=== PATIENT | female | born 1960 | race Caucasian/White ===

== ENCOUNTER 2018-10-21 17:46 | Emergency (ER) | payer OTHER, SELFPAY ==
[2018-10-21 18:48] LABS: Absolute Monocytes 0.4 K/uL (0.1-1.3); Absolute Neutrophil 3.5 K/uL (1.8-8.0); Basophils % 0.7 % (0-1.3); Eosinophils % 3.9 % (0-4.4); Hematocrit 40.9 % (36.0-45.0); Lymphocytes % 32.1 % (15.3-44.8); MPV 8.6 fL (7.6-11.3); Monocytes % 6.2 % (3.3-12.3)
[2018-10-21 19:02] LABS: Protime INR 0.89
[2018-10-21 19:19] LABS: ALT/SGPT 14 U/L (12-78); AST/SGOT 17 U/L (15-37); Albumin 3.6 g/dL (3.4-5.0); Alkaline Phosphatase 102 U/L (45-117); BUN Blood Urea Nitrogen 9 mg/dL (7-18); Bicarbonate 26 mmol/L (21-32); Bilirubin Direct < 0.1 mg/dL (0-0.2); Bilirubin Total 0.3 mg/dL (0.2-1.0); Glucose Level 93 mg/dL (74-106); Magnesium 1.9 mg/dL (1.8-2.4); NT PRO-BNP 39 pg/mL (<125); Potassium 3.5 mmol/L (3.5-5.1); Protein, Total 7.2 g/dL (6.4-8.2); Sodium Level 142 mmol/L (136-145); Troponin (Emerg Dept Use Only) < 0.02 ng/mL (0.0-0.045)
--- NOTE | 2018-10-21 19:26 | RAD REPORT ---
EXAM DESCRIPTION: Olivia Single View10/21/2018 7:07 pm CLINICAL HISTORY: Chest pain COMPARISON: 2008 FINDINGS: The lungs appear clear of acute infiltrate. The heart is normal size IMPRESSION: No acute abnormalities displayed
--- NOTE | 2018-10-21 19:36 | ER ---
Nurse's Notes [facility] Name: Leonela Stinson Age: 58 yrs Sex: Female : 1960 Arrival Date: 10/21/2018 Time: 17:53 Bed 25 Private MD: Diagnosis: Chest pain, unspecified Presentation: 10/21 17:53 Presenting complaint: EMS states: PATIENT COMPLAINED OF CHEST PAIN THAT RADIATES TO HER rv BACK. SHE TOOK TWO DOSES OF NITRO WHICH DID NOT GIVE RELIEF. NO SOB. Transition of care: patient was not received from another setting of care. Onset of symptoms was October 21, 2018 at 17:30. Risk Assessment: Do you want to hurt yourself or someone else? Patient reports no desire to harm self or others. Initial Sepsis Screen: Does the patient meet any 2 criteria? No. Patient's initial sepsis screen is negative. Does the patient have a suspected source of infection? No. Patient's initial sepsis screen is negative. Care prior to arrival: None. 17:53 Method Of Arrival: EMS: [facility] rv 17:53 Acuity: EMMY 3 rv Triage Assessment: 18:00 General: Appears in no apparent distress. comfortable, Behavior is calm, cooperative. rv Pain: Denies pain. EENT: No deficits noted. Neuro: Level of Consciousness is awake, alert, obeys commands, Oriented to person, place, time, situation. Cardiovascular: Capillary refill < 3 seconds. Respiratory: Airway is patent. GI: Abdomen is round. : No signs and/or symptoms were reported regarding the genitourinary system. Derm: Skin is intact. Musculoskeletal: No signs and/or symptoms reported regarding the musculoskeletal system. Historical: - Allergies: 17:59 No Known Allergies; rv - Home Meds: 17:59 Metoprolol Tartrate Oral [Active]; aspirin 81 mg Oral TbEC 1 tab once daily [Active]; rv Nexium Oral [Active]; Famotidine Oral [Active]; Clonazepam Oral [Active]; clopidogrel 75 mg oral tab 1 tab once daily [Active]; - PMHx: 17:59 Hypertension; rv - PSHx: 17:59 Hysterectomy; rv - Immunization history:: Adult Immunizations up to date. - Social history:: Smoking status: Patient uses tobacco products, smokes one-half pack cigarettes per day. - Ebola Screening: : Patient negative for fever greater than or equal to 101.5 degrees Fahrenheit, and additional compatible Ebola Virus Disease symptoms Patient denies exposure to infectious person Patient denies travel to an Ebola-affected area in the 21 days before illness onset. Screenin:02 Abuse screen: Denies threats or abuse. Denies injuries from another. Nutritional rv screening: No deficits noted. Tuberculosis screening: No symptoms or risk factors identified. Fall Risk None identified. Assessment: 18:03 Reassessment: (TRIAGE NOTES). rv Vital Signs: 18:01 BP 103 / 71 RA; Pulse 76; Resp 18 S; Temp 97.9(O); Pulse Ox 97% on R/A; Weight 86.18 rv kg; Height 5 ft. 3 in. (160.02 cm); Pain 0/10; 19:53 BP 116 / 73 RA; Pulse 68; Resp 16 S; Pulse Ox 100% on R/A; rv 18:01 Body Mass Index 33.66 (86.18 kg, 160.02 cm) rv ED Course: 17:53 Patient arrived in ED. rv 17:55 Triage completed. rv 18:03 Arm band placed on right wrist. EKG completed in triage. Results shown to MD. rv 18:03 Patient has correct armband on for positive identification. Bed in low position. Call rv light in reach. Side rails up X 1. Adult w/ patient. environmental monitoring specialist on. Pulse ox on. NIBP on. 18:03 Missed attempt(s): 22 gauge in left wrist. rv 18:15 Reilly Weston PA is PHCP. jr8 18:15 Chris Robertson MD is Attending Physician. jr8 19:08 XRAY Chest (1 view) In Process Unspecified. EDMS 19:35 Jimbo Nj MD is Referral Physician. jr8 19:53 No provider procedures requiring assistance completed. IV discontinued, bleeding rv controlled, No redness/swelling at site. Pressure dressing applied. Administered Medications: No medications were administered Outcome: 19:36 Discharge ordered by . jr8 19:54 Discharged to home ambulatory. rv 19:54 Condition: good 19:54 Discharge instructions given to patient, Instructed on discharge instructions, follow up and referral plans. medication usage, Demonstrated understanding of instructions, follow-up care, medications, Prescriptions given X 1. 19:54 Patient left the ED. rv Signatures: Dispatcher [employer] EDMS Reilly Weston PA PA jr8 Matt Oseguera, RN RN rv
--- NOTE | 2018-10-21 19:37 | EDPHYS ---
Physician Documentation [facility] Name: Leonela Stinson Age: 58 yrs Sex: Female : 1960 Arrival Date: 10/21/2018 Time: 17:53 Bed 25 Private MD: ED Physician Chris Robertson HPI: 10/21 19:00 This 58 yrs old Female presents to ER via EMS with complaints of chest pain. jr8 19:00 The patient or guardian reports chest pain that is located primarily in the substernal jr8 area. Onset: acutely, today. The pain radiates to back. Associated signs and symptoms: The patient has no apparent associated signs or symptoms. The chest pain is described as crushing. Duration: The patient or guardian reports a single episode, that is now resolved. Modifying factors: The symptoms are alleviated by nothing. Severity of pain: At its worst the pain was moderate. The patient has not experienced similar symptoms in the past. The patient has not recently seen a physician. Patient stated that she was at laundry mat when she had a hunger pain in stomach. Shortly after had intense substernal chest pain that went to back. Took two nitroglycerin without relief. Daughter had brought her a glass of water. After sipping that pain immediately stopped. Patient currently without any pain. Feels back to baseline . Historical: - Allergies: 17:59 No Known Allergies; rv - Home Meds: 17:59 Metoprolol Tartrate Oral [Active]; aspirin 81 mg Oral TbEC 1 tab once daily [Active]; rv Nexium Oral [Active]; Famotidine Oral [Active]; Clonazepam Oral [Active]; clopidogrel 75 mg oral tab 1 tab once daily [Active]; - PMHx: 17:59 Hypertension; rv - PSHx: 17:59 Hysterectomy; rv - Immunization history:: Adult Immunizations up to date. - Social history:: Smoking status: Patient uses tobacco products, smokes one-half pack cigarettes per day. - Ebola Screening: : Patient negative for fever greater than or equal to 101.5 degrees Fahrenheit, and additional compatible Ebola Virus Disease symptoms Patient denies exposure to infectious person Patient denies travel to an Ebola-affected area in the 21 days before illness onset. ROS: 19:00 Eyes: Negative for injury, pain, redness, and discharge, ENT: Negative for injury, jr8 pain, and discharge, Neck: Negative for injury, pain, and swelling, Respiratory: Negative for shortness of breath, cough, wheezing, and pleuritic chest pain, Abdomen/GI: Negative for abdominal pain, nausea, vomiting, diarrhea, and constipation, Back: Negative for injury and pain, MS/Extremity: Negative for injury and deformity, Skin: Negative for injury, rash, and discoloration, Neuro: Negative for headache, weakness, numbness, tingling, and seizure. 19:00 Cardiovascular: Positive for chest pain, Negative for edema, orthopnea, palpitations, paroxysmal nocturnal dyspnea. Exam: 19:00 Eyes: Pupils equal round and reactive to light, extra-ocular motions intact. Lids and jr8 lashes normal. Conjunctiva and sclera are non-icteric and not injected. Cornea within normal limits. Periorbital areas with no swelling, redness, or edema. ENT: Nares patent. No nasal discharge, no septal abnormalities noted. Tympanic membranes are normal and external auditory canals are clear. Oropharynx with no redness, swelling, or masses, exudates, or evidence of obstruction, uvula midline. Mucous membranes moist. Neck: Trachea midline, no thyromegaly or masses palpated, and no cervical lymphadenopathy. Supple, full range of motion without nuchal rigidity, or vertebral point tenderness. No Meningismus. Chest/axilla: Normal chest wall appearance and motion. Nontender with no deformity. No lesions are appreciated. Cardiovascular: Regular rate and rhythm with a normal S1 and S2. No gallops, murmurs, or rubs. Normal PMI, no JVD. No pulse deficits. Respiratory: Lungs have equal breath sounds bilaterally, clear to auscultation and percussion. No rales, rhonchi or wheezes noted. No increased work of breathing, no retractions or nasal flaring. Abdomen/GI: Soft, non-tender, with normal bowel sounds. No distension or tympany. No guarding or rebound. No evidence of tenderness throughout. Back: No spinal tenderness. No costovertebral tenderness. Full range of motion. Skin: Warm, dry with normal turgor. Normal color with no rashes, no lesions, and no evidence of cellulitis. MS/ Extremity: Pulses equal, no cyanosis. Neurovascular intact. Full, normal range of motion. Neuro: Awake and alert, GCS 15, oriented to person, place, time, and situation. Cranial nerves II-XII grossly intact. Motor strength 5/5 in all extremities. Sensory grossly intact. Cerebellar exam normal. Normal gait. Vital Signs: 18:01 BP 103 / 71 RA; Pulse 76; Resp 18 S; Temp 97.9(O); Pulse Ox 97% on R/A; Weight 86.18 rv kg; Height 5 ft. 3 in. (160.02 cm); Pain 0/10; 19:53 BP 116 / 73 RA; Pulse 68; Resp 16 S; Pulse Ox 100% on R/A; rv 18:01 Body Mass Index 33.66 (86.18 kg, 160.02 cm) rv MDM: 18:15 Patient medically screened. jr8 19:34 Differential diagnosis: abnormal EKG, acute myocardial infarction, acute pericarditis, jr8 anxiety, chest wall pain, cholecystitis, Cholelithiasis costochondritis, esophagitis, gastritis, gastroesophageal reflux disease (GERD), pancreatitis, peptic ulcer disease, pneumonia, pneumothorax, pulmonary embolus, stable angina, thoracic aortic disection, unstable angina. The patient was not given aspirin in the Emergency Department. Patient reports taking aspirin within the past 24 hours. Data reviewed: vital signs, nurses notes, lab test result(s), EKG, radiologic studies, plain films. ED course: Patient was telling me that she has been having worsening of her gastritis and indigestion even with being on pepcid and nexium. Discussed with her that this could be the problem today. Advised f/u with both waste disposal plant operator and apparel cutter soon. Patient did not want to wait for second troponin to be done. Knows to come back if worse. Will switch PPI's . 10/21 18:16 Order name: Basic Metabolic Panel; Complete Time: 19:25 [facility] 10/21 18:16 Order name: CBC with Diff; Complete Time: 19:04 [facility] 10/21 18:16 Order name: LFT's; Complete Time: 19:25 [facility] 10/21 18:16 Order name: Magnesium; Complete Time: 19:25 [facility] 10/21 18:16 Order name: NT PRO-BNP; Complete Time: 19:25 [facility] 10/21 18:16 Order name: PT-INR; Complete Time: 19:06 10/21 18:16 Order name: Troponin (emerg Dept Use Only); Complete Time: 19:25 8 10/21 18:16 Order name: XRAY Chest (1 view); Complete Time: 19:27 10/21 18:16 Order name: EKG; Complete Time: 18:17 8 10/21 18:16 Order name: Cardiac monitoring; Complete Time: 18:17 8 10/21 18:16 Order name: EKG - Nurse/Tech; Complete Time: 18:17 10/21 18:16 Order name: IV Saline Lock; Complete Time: 18:17 8 10/21 18:16 Order name: Labs collected and sent; Complete Time: 18:17 8 10/21 19:21 Order name: Urine Dipstick--Ancillary (enter results) ms 10/21 18:16 Order name: O2 Per Protocol; Complete Time: 18:17 8 10/21 18:16 Order name: O2 Sat Monitoring; Complete Time: 18:17 Administered Medications: No medications were administered Disposition: 10/21/18 19:36 Discharged to Home. Impression: Chest pain, unspecified. - Condition is Stable. - Discharge Instructions: Nonspecific Chest Pain, Gastroesophageal Reflux Disease, Adult, Chest Pain Observation. - Prescriptions for Dexilant 30 mg Oral capsule,biphase delayed releas - take 2 capsule by ORAL route once daily swallowing whole. Do not crush, chew and/or divide.; 60 capsule. - Medication Reconciliation Form, Thank You Letter, Antibiotic Education, Prescription Opioid Use form. - Follow up: Jimbo Nj MD; When: 2 - 3 days; Reason: Recheck today's complaints, Continuance of care, Re-evaluation by your physician. - Problem is new. - Symptoms have improved. - Notes: Stop pepcid and Nexium Addendum: 10/25/2018 21:55 Co-signature as Attending Physician, Chris Robertson MD. g s Signatures: Dispatcher [employer] EDMS Reilly Weston PA PA jr8 Chris Robertson MD MD gs Vicente, Ronaldo, RN RN rv Corrections: (The following items were deleted from the chart) 10/21 19:02 19:00 Eyes: Pupils equal round and reactive to light, extra-ocular motions intact. Lids jr8 and lashes normal. Conjunctiva and sclera are non-icteric and not injected. Cornea within normal limits. Periorbital areas with no swelling, redness, or edema. ENT: Nares patent. No nasal discharge, no septal abnormalities noted. Tympanic membranes are normal and external auditory canals are clear. Oropharynx with no redness, swelling, or masses, exudates, or evidence of obstruction, uvula midline. Mucous membranes moist. Neck: Trachea midline, no thyromegaly or masses palpated, and no cervical lymphadenopathy. Supple, full range of motion without nuchal rigidity, or vertebral point tenderness. No Meningismus. Cardiovascular: Regular rate and rhythm with a normal S1 and S2. No gallops, murmurs, or rubs. Normal PMI, no JVD. No pulse deficits. Respiratory: Lungs have equal breath sounds bilaterally, clear to auscultation and percussion. No rales, rhonchi or wheezes noted. No increased work of breathing, no retractions or nasal flaring. Abdomen/GI: Soft, non-tender, with normal bowel sounds. No distension or tympany. No guarding or rebound. No evidence of tenderness throughout. Back: No spinal tenderness. No costovertebral tenderness. Full range of motion. Skin: Warm, dry with normal turgor. Normal color with no rashes, no lesions, and no evidence of cellulitis. MS/ Extremity: Pulses equal, no cyanosis. Neurovascular intact. Full, normal range of motion. Neuro: Awake and alert, GCS 15, oriented to person, place, time, and situation. Cranial nerves II-XII grossly intact. Motor strength 5/5 in all extremities. Sensory grossly intact. Cerebellar exam normal. Normal gait. jr8 19:54 19:36 10/21/2018 19:36 Discharged to Home. Impression: Chest pain, unspecified. rv Condition is Stable. Forms are Medication Reconciliation Form, Thank You Letter, Antibiotic Education, Prescription Opioid Use. Follow up: Jimbo Nj; When: 2 - 3 days; Reason: Recheck today's complaints, Continuance of care, Re-evaluation by your physician. Problem is new. Symptoms have improved. jr8
[2018-10-21 20:48] LABS: Urine Blood TRACE (NEG); Urine Glucose NEGATIVE (NEG); Urine Protein 1+ (NEG); Urine Specific Gravity 1.015 (1.005-1.030); Urine pH 6.5 (5.0-7.0)
--- NOTE | 2018-10-22 09:41 | EKG ---
Test Date: 2018-10-21 Test Time: 17:57:47 Conventional Underwriter: PAPAT MEASUREMENT RESULTS: Intervals: Rate: 70 [place]: 154 QRSD: 90 QT: 432 QTc: 466 [place]: P: 46 [place]: 154 QRS: 52 T: 71 INTERPRETIVE STATEMENTS: Normal sinus rhythm Normal ECG Compared to ECG 01/17/2009 08:26:06 No significant changes Electronically Signed On 10-22-18 09:40:07 CDT by Slava Melgar
== END 2018-10-21 19:54 | disposition home or self-care (01) ==
LOC: ER 17:46
DX: R07.9 Chest pain, unspecified (principal); I10 Essential (primary) hypertension; F17.210 Nicotine dependence, cigarettes, uncomplicated; Z79.82 Long term (current) use of aspirin
CPT/HCPCS: 36415; 71045; 80048; 80076; 81003; 83735; 83880; 84484; 85025; 85610; 93005; 99284

== ENCOUNTER 2019-12-28 23:56 | Emergency (ER) | payer SELFPAY ==
--- OUTSIDE RECORDS SUMMARY | 2019-12-28 23:58 | XMS REPORT ---
:1960 Author Organization [facility] t Address [address] [place] [address] Care Team Providers Name Role Phone Darien BURGOS Attending Clinician Problems This patient has no known problems. Allergies, Adverse Reactions, Alerts This patient has no known allergies or adverse reactions. Medications This patient has no known medications. Procedures This patient has no known procedures. Encounters Start End Encounter Admission Attending Care Care Encounter Source Date/Time Date/Time Type Type Clinicians Facility Department ID 2019-10-31 2019-10-31 [facility] RAHUL Ledezma [id number] 09:01:49 09:21:49 ne Visit Jimbo [place] [id number] [place] [id number] [place] [id number] nal 059 Building Results This patient has no known results.
--- OUTSIDE RECORDS SUMMARY | 2019-12-28 23:59 | XMS REPORT | Summary of Care ---
:1960 Author Organization [facility] Address [address] [place] [id number] Care Team Providers Name Role Phone Pcp, Does Not Have A Primary Care Provider Reason for Referral (Routine) Status Reason Specialty Diagnoses / Referred By Referred To Procedures Contact Contact New Request Cardiology Diagnoses Chest pain, unspecified type Jimbo Ledezma MD Procedures DOBUTAMINE STRESS ECHO Preferred Location: [address] [place] [address] Reason for Visit Reason Comments Chest Pain Encounter Details Date Type Department Care Team Description 10/31/2019 Telemedicine Visit [facility] Jimbo Ledezma MD Chest pain, unspecified type (Primary Dx ); Cardiology- [address] [place] [address] Coronary a rtery disease involving picayune coronary artery of picayune heart with angina pectoris; [facility] Essential hypertension; [address] [place] [address] [address] Dyslipidemia; [address], [address] [place], [place] Obesity (BMI 30-39.9) [place] [address] [phone] Allergies Active Allergy Reactions Severity Noted Date Comments Lisinopril Cough 11/30/2017 documented as of this encounter (statuses as of 10/31/2019) Medications Medication Sig Dispensed Refills Start Date End Date Status aspirin 81 mg Take 1 Tab by 30 Tab 5 09/26/2015 A ctive chewable tablet mouth daily. atorvastatin 40 mg Take 1 tablet 90 tablet 3 09/16/2017 Active tablet by mouth daily. famotidine 20 mg Take 1 tablet 180 tablet 3 09/16/2017 Active tablet by mouth 2 (two) times daily. metoprolol tartrate Take 1 tablet 180 tablet 3 09/16/2017 Active 50 mg tablet by mouth 2 (two) times daily. nitroglycerin 0.4 Place 1 1 Bottle 3 09/16/2017 A ctive mg sublingual tablet under tablet the tongue every 5 (five) minutes as needed for Chest pain. losartan 100 mg Take 1 tablet 30 tablet 2 11/30/2017 Active tablet by mouth daily. clopidogrel 75 mg Take 1 tablet 90 tablet 3 09/16/2017 020 Discontinued tablet by mouth daily. documented as of this encounter (statuses as of 10/31/2019) Active Problems Problem Noted Date Dyslipidemia 03/13/2017 Coronary artery disease involving picayune coronary rosio ry of picayune heart 03/13/2017 with angina pectoris Obesity (BMI 30-39.9) 03/12/2017 NSTEMI (non-ST elevated myocardial infarction) 016 Family history of ischemic heart disease 09/23/2015 HTN (hypertension) 09/23/2015 Chest pain 09/22/2015 documented as of this encounter (statuses as of 10/31/2019) Social History Tobacco Use Types Packs/Day Years Used Date Current Every Day Smoker Smokeless Tobacco: Never Used Comments: slowly stopping over time Alcohol Use Drinks/Week oz/Week Comments No Sex Assigned at Date Recorded Not on file Job Start Date Occupation Industry Not on file Not on file Not on file Travel History Travel Start Travel End No recent travel history available. documented as of this encounter Last Filed Vital Signs Not on filedocumented in this encounter Progress Notes Jimbo Ledezma MD - 10/31/2019 2:20 PM CDT CARDIOLOGY CLINIC NOTE 10/31/2019 Reason for Referral/Presenting Complaint: CAD s/p PCI, HTN, chest pain PCP: PATIENT DOES NOT HAVE A PCP History of Present Illness: Leonela Stinson is a 59 years old female with history of smoking, HTN, HLD, and CAD NSTEMI s/p LAD/D/LCxPCI with CHERRIE in 09/2015. She was seen in [facility] in 09/2015 for NSTEMI. She was transferred to [facility] where she underwent PCI with CHERRIE to LAD/D/LCx with good results. LVEDP was 28 mmHg. "Recently her BP has been elevated and she can feel it--facial fullness. She has had 2 episodes of throat tightness similar to previous angina." Today her main concern is chest pain--chronic, it have been going on even right after PCI. It is around left breast, sometimes right breast, almost daily, dull ache, lasting hours, however she can mow the yard without chest pain. Still smoking. Off plavix due to cost. Now on amlodipine. Past Medical History: Past Medical History: Diagnosis Date CAD (coronary artery disease) 09/2015 NSTEMI HLD (hyperlipidemia) HTN (hypertension) Current Medications: Current Outpatient Medications Medication Sig Dispense Refill losartan 100 mg tablet Take 1 tablet by mouth daily. 30 tablet 2 atorvastatin 40 mg tablet Take 1 tablet by mouth daily. 90 tablet 3 famotidine 20 mg tablet Take 1 tablet by mouth 2 (two) times daily. 180 tablet 3 metoprolol tartrate 50 mg tablet Take 1 tablet by mouth 2 (two) times daily. 180 tablet 3 nitroglycerin 0.[address] 1 tablet under the tongue every 5 (five) minutes as needed for Chest pain. 1 Bottle 3 aspirin 81 mg chewable tablet Take 1 Tab by mouth daily. 30 Tab 5 No current facility-administered medications for this visit. Allergies: Allergies Allergen Reactions Lisinopril Cough Social History: Social History Socioeconomic History Marital status: Spouse name: Not on file Number of children: Not on file Years of education: Not on file Highest education level: Not on file Occupational History Not on file Social Needs Financial resource strain: Not on file Food insecurity: Worry: Not on file Inability: Not on file Transportation needs: Medical: Not on file Non-medical: Not on file Tobacco Use Smoking status: Current Every Day Smoker Smokeless tobacco: Never Used Tobacco comment: slowly stopping over time Substance and Sexual Activity Alcohol use: No Drug use: No Sexual activity: Not on file Lifestyle Physical activity: Days per week: Not on file Minutes per session: Not on file Stress: Not on file Relationships Social connections: Talks on phone: Not on file Gets together: Not on file Attends anglican service: Not on file Active member of club or organization: Not on file Attends meetings of clubs or organizations: Not on file Relationship status: Not on file Intimate partner violence: Fear of current or ex partner: Not on file Emotionally abused: Not on file Physically abused: Not on file Forced sexual activity: Not on file Other Topics Concern Not on file Social History Narrative Not on file Family History Family History Problem Relation Age of Onset Coronary Heart Disease Father 50 CABG 2010 Coronary Heart Disease Mother 50 PCI Coronary Heart Disease Brother 40 PCI Coronary Heart Disease Brother 40 CABG 3[address] Coronary Heart Disease Brother 40 CABG 4[address] Review of Systems: (-)=Negative,(+)=Positive General: (-) fever, (-) chills, (-) weight change, (-) dizziness, (+) fatigue Skin: (-) rash HEENT: (-) headache, (-) change in vision Neck: (-) difficulty swallowing Heme: negative Resp: (-) cough, (-) dyspnea on exertion Cardio: (+) chest pain, (-) palpitations, (-) syncope GI: (-) vomiting, (-) diarrhea : negative Endo: (-) diabetes, (-) thyroid disease Neuro: (-) numbness, (-) tingling, (+) weakness Back: (-) pain MAYNOR: (-) muscle pain, (-) claudication Psych: (-) anxiety, (-) depression Physical Examination: Constitutional: Alert and in no distress Respiratory: Breathing comfortably Neurology: Answers questions appropriately Labs: CBC BMP PT/INR WBC (10*3/L) Date Value 12/05/2017 6.99 NA (mmol/L) Date Value 12/05/2017 140 No results found for: PT PLT (10*3/L) Date Value 12/05/2017 221 K (mmol/L) Date Value 12/05/2017 3.5 INR (no units) Date Value 12/04/2017 0.9 HGB (g/dL) Date Value 12/05/2017 12.2 BUN (mg/dL) Date Value 12/05/2017 14 HCT (%) Date Value 12/05/2017 36.1 CREATININE (mg/dL) Date Value 12/05/2017 0.70 LIPID PROFILE GLUCOSE (mg/dL) Date Value 12/05/2017 105 CHOL (mg/dL) Date Value 09/23/2015 250 (H) TSH LDL CHOL (mg/dL) Date Value 09/23/2015 150 (H) TSH (mIU/L) Date Value 03/12/2017 0.57 CARDIAC ENZYMES HDL (mg/dL) Date Value 09/23/2015 51 (L) CK (U/L) Date Value 03/12/2017 60 TRIG (mg/dL) Date Value 09/23/2015 244 (H) LFTs CK-MB (ng/mL) Date Value 03/12/2017 0.79 AST(SGOT) (U/L) Date Value 12/04/2017 26 TROPONIN I (ng/mL) Date Value 12/05/2017 0.002 ALT(SGPT) (U/L) Date Value 12/04/2017 30 No results found for: BNP EKG: Normal sinus rhythm. Non-specific ST changes. 12/08/2015: NSR, normal EKG. Echocardiogram: 09/2015 Normal LVEF with normal wall motion. Cardiac Cath: 09/2015 LAD/D/LCx disease treated with PCI CHERRIE. LVEDP 28 mmHg. Assessment/Plan: ICD-10-CM ICD-9-CM 1. Chest pain, unspecified type R07.9 786.50 2. Coronary artery disease involving picayune coronary artery of picayune heart with angina pectoris I25.119 414.01 413.9 3. Essential hypertension I10 401.9 4. Dyslipidemia E78.5 272.4 5. Obesity (BMI 30-39.9) E66.9 278.00 Chest pain--non anginal chest pain, different from previous angina. She is very concerned and wants to have ischemia evaluation. Discussed treadmill stress test vs DSE. She prefers DSE. HTN--Her BP seems controlled. Continue losartan/amlodipine/metoprolol. CAD--On ASA/lipitor/metoprolol. Off plavix due to cost. HLD--on lipitor. Patient was counseled for lifestyle modifications including: diet, exercise, weight loss and smokingcessation. RTC 12 months or earlier if needed Telehealth service ? Verbal consent obtained from patient Leonela Stinson for telehealth sevice provided ? My location: [facility] cardiology clinic ? Patient location: Home ? Format: Communication with patient was conducted via Telephone due to patient unable to obtain video call option ? A total of 25 minutes spent on the telephone with the patient Jimbo Ledezma MD, FACC, ANGELAE [employer], Division of Cardiology [facility] documented in this encounter Plan of Treatment Health Maintenance Due Date Last Done Comments HEPATITIS C (HCV) SCREEN 1960 DTaP,Tdap,and Td Vaccines (1 - 1973 Tdap) PAP SMEAR 1983 Breast Cancer Screening 2002 (MAMMOGRAM) COLONOSCOPY 2012 Zoster Recombinant Vaccine 2012 (SHINGRIX) (1 of 2) LUNG CANCER SCREEN: Recommended 2017 for age 55-80 with 30 + pack year history INFLUENZA VACCINE (#1) 2019 PNEUMOCOCCAL 0-64 YEARS COMBINED Aged Out No longer eligible based on SERIES patient's age to complete this topic documented as of this encounter Implants Implanted Type Area Forms Designer Device Identifier Shelf Exp iration Model / Serial Date / Lot Stent STENT Heart documented as of this encounter Results Not on filedocumented in this encounter Visit Diagnoses Diagnosis Chest pain, unspecified type - Primary Coronary artery disease involving picayune coronary artery of picayune heart with angina pectoris Essential hypertension Unspecified essential hypertension Dyslipidemia Other and unspecified hyperlipidemia Obesity (BMI 30-39.9) Obesity, unspecified documented in this encounter
[2019-12-29 00:47] LABS: Absolute Lymphocytes (CBC) 3.1 K/uL (0.7-4.9); Basophils % 1.3 % (0-1.3); Hematocrit 44.2 % (36.0-45.0); Lymphocytes % 40.7 % (15.3-44.8); RBC Red Blood Cell Count 4.78 M/uL (3.86-4.86)
[2019-12-29] MEDS ORDERED: ONDANSETRON 4 MG/2 ML VIAL ONE (00:48)
[2019-12-29] MEDS ORDERED: MORPHINE 4 MG/ML SYR ONE (00:48)
[2019-12-29] MEDS ORDERED: NA CHLORIDE 0.9% 1,000 ML ONE (00:48)
[2019-12-29 01:02] LABS: ALT/SGPT 15 U/L (12-78); AST/SGOT 16 U/L (15-37); Albumin 3.6 g/dL (3.4-5.0); Alkaline Phosphatase 109 U/L (45-117); BUN Blood Urea Nitrogen 10 mg/dL (7-18); Bicarbonate 27 mmol/L (21-32); Bilirubin Direct < 0.1 mg/dL (0-0.2); Bilirubin Total 0.2 mg/dL (0.2-1.0); Glucose Level 102 mg/dL (74-106); Lipase 147 U/L (73-393); Potassium 3.7 mmol/L (3.5-5.1); Protein, Total 7.8 g/dL (6.4-8.2); Sodium Level 139 mmol/L (136-145)
[2019-12-29 02:00] LABS: Urine Blood TRACE (NEG); Urine Glucose NEGATIVE (NEG); Urine Protein NEGATIVE (NEG); Urine pH 7.5 (5.0-7.0)
[2019-12-29 02:37] VITALS: TEMP 97.8
[2019-12-29 02:39] VITALS: BP 116/79; O2SAT 96
--- NOTE | 2019-12-29 15:50 | RAD REPORT ---
EXAM DESCRIPTION: CT ABDOMEN AND PELVIS WITH CONTRAST CLINICAL HISTORY: ABD PAIN COMPARISON: None Available. TECHNIQUE: CT of the abdomen and pelvis performed following IV administration of iodinated contrast. FINDINGS: Lung Bases: The visualized lung bases are clear. Bones: Degenerative facet arthropathy of the lumbar spine. Mild endplate spondylosis. Abdomen: Liver: The liver has normal size and density. No intrahepatic biliary dilatation. Gallbladder: No calcified gallstones. Spleen, Pancreas, and Adrenal Glands: The spleen, pancreas, and adrenal glands are unremarkable. Kidneys: No hydronephrosis or obstructing calculus. Vasculature: Aortoiliac atherosclerosis. IVC is unremarkable. The portal vein is patent. The proxim al visceral and renal arteries are patent. Stomach: Small hiatal hernia. Other: No free intraperitoneal air. Tiny fat-containing umbilical hernia. No free fluid or lymphade nopathy. Pelvis: Bladder: Urinary bladder is unremarkable. Bowel: No dilated loops of large or small bowel. Scattered diverticula of the colon. Appendix: Normal appendix. Pelvis: Prior hysterectomy. IMPRESSION: 1. No acute inflammatory or obstructive process identified. 2. Diverticulosis without evidence of acute diverticulitis. This exam was performed according to our departmental dose-optimization program, which includes autom ated exposure control, adjustment of the mA and/or kV according to patient size and/or use of iterati ve reconstruction technique. Electronically signed by: Robel Yang 12/29/2019 1:32 AM CDT Due to temporary technical issues with the PACS/Fluency reporting system, reports are being signed by the in house radiologist without review asa courtesy to ensure prompt reporting. The interpreting ra diologist is fully responsible for the content of the report.
--- NOTE | 2019-12-31 17:33 | EDPHYS ---
Physician Documentation [facility] Name: Leonela Stinson Age: 59 yrs Sex: Female : 1960 Arrival Date: 12/28/2019 Time: 23:58 Bed 15 Private MD: ED Physician Jon Calzada HPI: 12/28 00:57 This 59 yrs old Female presents to ER via Ambulatory with complaints of mh7 Abdominal pain. 00:58 The patient presents with abdominal pain in the left upper quadrant, in the left lower mh7 quadrant. Onset: The symptoms/episode began/occurred 3 day(s) ago. The symptoms radiate to the left flank. Associated signs and symptoms: Pertinent positives: nausea, Pertinent negatives: anorexia, blood in stools, chest pain, constipation, diarrhea, dysuria, fever, headache, hematuria, palpitations, shortness of breath, vaginal discharge, vomiting, vomiting blood. The symptoms are described as intermittent, sharp, waxing/waning. Modifying factors: The symptoms are alleviated by nothing, the symptoms are aggravated by movement. Severity of pain: At its worst the pain was moderate today, in the emergency department the pain is unchanged. Historical: - Allergies: 00:08 No Known Allergies; sg - PMHx: 00:08 Hypertension; sg - PSHx: 00:08 Hysterectomy; Bladder suspension; Cardiac Stent x4; sg - Immunization history:: Adult Immunizations up to date. - Social history:: Smoking status: Patient denies any tobacco usage or history of. ROS: 00:58 Constitutional: Negative for fever, chills, and weight loss, Eyes: Negative for injury, mh7 pain, redness, and discharge, ENT: Negative for injury, pain, and discharge, Neck: Negative for injury, pain, and swelling, Cardiovascular: Negative for chest pain, palpitations, and edema, Respiratory: Negative for shortness of breath, cough, wheezing, and pleuritic chest pain, : Negative for injury, bleeding, discharge, and swelling, MS/Extremity: Negative for injury and deformity, Skin: Negative for injury, rash, and discoloration, Neuro: Negative for headache, weakness, numbness, tingling, and seizure, Psych: Negative for depression, anxiety, suicide ideation, homicidal ideation, and hallucinations, Allergy/Immunology: Negative for hives, rash, and allergies, Endocrine: Negative for neck swelling, polydipsia, polyuria, polyphagia, and marked weight changes, Hematologic/Lymphatic: Negative for swollen nodes, abnormal bleeding, and unusual bruising. Exam: 00:58 Constitutional: This is a well developed, well nourished patient who is awake, alert, mh7 and in no acute distress. Head/Face: Normocephalic, atraumatic. Neck: Trachea midline, no thyromegaly or masses palpated, and no cervical lymphadenopathy. Supple, full range of motion without nuchal rigidity, or vertebral point tenderness. No Meningismus. Chest/axilla: Normal chest wall appearance and motion. Nontender with no deformity. No lesions are appreciated. Cardiovascular: Regular rate and rhythm with a normal S1 and S2. No gallops, murmurs, or rubs. Normal PMI, no JVD. No pulse deficits. Respiratory: Lungs have equal breath sounds bilaterally, clear to auscultation and percussion. No rales, rhonchi or wheezes noted. No increased work of breathing, no retractions or nasal flaring. 00:58 Skin: Warm, dry with normal turgor. Normal color with no rashes, no lesions, and no evidence of cellulitis. MS/ Extremity: Pulses equal, no cyanosis. Neurovascular intact. Full, normal range of motion. Neuro: Awake and alert, GCS 15, oriented to person, place, time, and situation. Cranial nerves II-XII grossly intact. Motor strength 5/5 in all extremities. Sensory grossly intact. Cerebellar exam normal. Normal gait. Psych: Awake, alert, with orientation to person, place and time. Behavior, mood, and affect are within normal limits. 00:58 Abdomen/GI: Inspection: abdomen appears normal, Bowel sounds: normal, in all quadrants, Palpation: moderate abdominal tenderness, in the left upper quadrant and left lower quadrant, Rectal exam: the exam is deferred, because of patient request, Indicators: McBurney's point is not tender, Clayton's sign is negative, Rovsing's sign is negative, Obturator sign is negative, Psoas sign is negative, Liver: no appreciated palpable abnormalities, Hernia: not appreciated. 00:58 Back: pain, is absent, ROM is normal, normal spinal alignment noted, CVA tenderness, that is mild, is noted on the left, vertebral tenderness, is not appreciated, muscle spasm, is not present. 01:54 ECG was reviewed by the Attending Physician. [facility] Vital Signs: 00:05 Weight 70.31 kg; Height 5 ft. 8 in. (172.72 cm); Pain 10/10; sg 00:06 BP 161 / 108; Pulse 105; Resp 19 S; Temp 97.8(TE); Pulse Ox 100% on R/A; jd3 01:41 BP 116 / 79; Pulse 73; Resp 17 S; Pulse Ox 96% on R/A; jd3 00:05 Body Mass Index 23.57 (70.31 kg, 172.72 cm) sg MDM: 00:23 Patient medically screened. [facility] 02:12 Differential diagnosis: AAA, bowel obstruction, Cholelithiasis, diverticulitis, [facility] gastritis, non-specific abd pain, pancreatitis, Peptic Ulcer Disease, Pyelonephritis, Ureterolithiasis, urinary tract infection. Data reviewed: vital signs, nurses notes, lab test result(s), CBC, electrolytes, urinalysis, EKG, radiologic studies, CT scan. Data interpreted: Pulse oximetry: on room air is 96 %. Interpretation: normal. Counseling: I had a detailed discussion with the patient and/or guardian regarding: the historical points, exam findings, and any diagnostic results supporting the discharge/admit diagnosis, lab results, radiology results, the need for outpatient follow up, to return to the emergency department if symptoms worsen or persist or if there are any questions or concerns that arise at home. 12/28 00:25 Order name: Basic Metabolic Panel [facility] 12/28 00:25 Order name: CBC with Diff [facility] 12/28 00:25 Order name: Hepatic Function; Complete Time: 01:10 [facility] 12/28 00:26 Order name: Basic Metabolic Panel; Complete Time: 01:10 [facility] 12/28 00:26 Order name: CBC with Automated Diff; Complete Time: 01:10 [facility] 12/28 00:25 Order name: CT Abd/Pelvis - IV Contrast Only [facility] 12/28 00:57 Order name: Lipase; Complete Time: 01:10 [facility] 12/28 01:03 Order name: CREATININE WHOLE BLOOD; Complete Time: 01:10 [facility] 12/28 01:04 Order name: CREATININE WHOLE BLOOD [facility] 12/28 01:57 Order name: Urine Dipstick--Ancillary (enter results); Complete Time: 02:07 12/28 00:25 Order name: IV Saline Lock; Complete Time: 00:42 mh7 12/28 00:25 Order name: Labs collected and sent; Complete Time: 00:42 mh7 12/28 00:25 Order name: EKG - Nurse/Tech; Complete Time: 00:49 mh7 12/28 01:26 Order name: Urine Dipstick-Ancillary (obtain specimen); Complete Time: 01:28 mh7 EC:54 Rate is 71 beats/min. Rhythm is regular. QRS Dewey is Normal. AR interval is normal. QRS mh7 interval is normal. QT interval is normal. Q waves are Present in lead I. T waves are Normal. No ST changes noted. Clinical impression: NSR w/ Non-specific ST/T Changes. Administered Medications: 00:47 Drug: morphine 4 mg Route: IVP; Site: right antecubital; jd3 02:27 Follow up: Response: No adverse reaction; RASS: Alert and Calm (0) jd3 00:47 Drug: Zofran (Ondansetron) 4 mg Route: IVP; Site: right antecubital; jd3 02:28 Follow up: Response: No adverse reaction jd3 00:49 Drug: NS 0.9% 1000 ml Route: IV; Rate: 1000 ml; Site: right antecubital; jd3 01:45 Follow up: Response: No adverse reaction; IV Status: Completed infusion; IV Intake: jd3 1000ml Disposition: 12/29/19 02:14 Discharged to Home. Impression: Unspecified abdominal pain. - Condition is Stable. - Discharge Instructions: Abdominal Pain, Adult. - Prescriptions for Zofran ODT 4 mg Oral tablet,disintegrating - place 1 tablet by TRANSLINGUAL route every 8 hours As needed; 10 tablet. Bentyl 20 mg Oral Tablet - take 1 tablet by ORAL route every 6 hours As needed; 20 tablet. Pepcid 20 mg Oral Tablet - take 1 tablet by ORAL route once daily for 10 days; 10 tablet. - Medication Reconciliation Form, Thank You Letter, Antibiotic Education, Prescription Opioid Use form. - Follow up: Private Physician; When: 1 - 2 days; Reason: Worsening of condition, Re-evaluation by your physician. - Problem is new. - Symptoms have improved. Signatures: [facility] Randy Galvez, RN RN sg Vidal Starr RN RN jJon Matthew MD MD mh7 Corrections: (The following items were deleted from the chart) 00:58 00:27 LIPASE+C.LAB.BRZ ordered. [facility] 02:29 02:14 12/29/2019 02:14 Discharged to Home. Impression: Unspecified abdominal pain. jd3 Condition is Stable. Forms are Medication Reconciliation Form, Thank You Letter, Antibiotic Education, Prescription Opioid Use. Follow up: Private Physician; When: 1 - 2 days; Reason: Worsening of condition, Re-evaluation by your physician. Problem is new. Symptoms have improved. mh7
--- NOTE | 2019-12-31 17:33 | ER ---
Nurse's Notes [facility] Name: Leonela Stinson Age: 59 yrs Sex: Female : 1960 Arrival Date: 12/28/2019 Time: 23:58 Bed 15 Private MD: Diagnosis: Unspecified abdominal pain Presentation: 12/28 00:05 Chief complaint: Patient states: Left Sided flank pain that radiates to the left side sg of abdomen, pt complaining of nausea, denies urinary symptoms at this time, reports having a hx of bladder sling that was not successful and frequent UTI but this feels much different than those times in the past. Coronavirus screen: Proceed with normal triage. Ebola Screen: Patient negative for fever greater than or equal to 101.5 degrees Fahrenheit, and additional compatible Ebola Virus Disease symptoms Patient denies exposure to infectious person. Patient denies travel to an Ebola-affected area in the 21 days before illness onset. No symptoms or risks identified at this time. Initial Sepsis Screen: Does the patient meet any 2 criteria? HR > 90 bpm. Does the patient have a suspected source of infection? Yes: Dysuria/Frequency/Urgency/UTI. Risk Assessment: Do you want to hurt yourself or someone else? Patient reports no desire to harm self or others. Onset of symptoms was December 29, 2019. Care prior to arrival: None. Transition of care: patient was not received from another setting of care. 00:05 Method Of Arrival: Ambulatory sg 00:05 Acuity: EMMY 3 sg Historical: - Allergies: 00:08 No Known Allergies; sg - PMHx: 00:08 Hypertension; sg - PSHx: 00:08 Hysterectomy; Bladder suspension; Cardiac Stent x4; sg - Immunization history:: Adult Immunizations up to date. - Social history:: Smoking status: Patient denies any tobacco usage or history of. Screenin:09 Abuse screen: Denies threats or abuse. Nutritional screening: No deficits noted. jd3 Tuberculosis screening: No symptoms or risk factors identified. Fall Risk Ambulatory Aid- None/Bed Rest/Nurse Assist (0 pts). Gait- Normal/Bed Rest/Wheelchair (0 pts) Mental Status- Oriented to own ability (0 pts). Total Chen Fall Scale indicates No Risk (0-24 pts). Assessment: 00:07 General: Appears in no apparent distress. uncomfortable, Behavior is calm, cooperative, jd3 appropriate for age. Pain: Complains of pain in left flank Pain radiates to anterior aspect of left lateral abdomen and left lower quadrant Quality of pain is described as sharp, shooting. Neuro: Level of Consciousness is awake, alert, obeys commands, Oriented to person, place, time, situation. Cardiovascular: Denies chest pain, Capillary refill < 3 seconds Patient's skin is warm and dry. Respiratory: Airway is patent Respiratory effort is even, unlabored, Respiratory pattern is regular, symmetrical, Denies cough, shortness of breath. GI: Abdomen is round non-distended, Bowel sounds present X 4 quads. Abd is soft X 4 quads Abdomen is tender to palpation in left upper quadrant and left lower quadrant Reports lower abdominal pain, nausea. : Reports pain in left flank(s). EENT: No signs and/or symptoms were reported regarding the EENT system. Derm: Skin is intact, Skin is dry, Skin is normal, Skin temperature is warm. Musculoskeletal: Circulation, motion, and sensation intact. Range of motion: intact in all extremities. 01:41 Reassessment: Patient and/or family updated on plan of care and expected duration. Pain jd3 level reassessed. Patient is alert, oriented x 3, equal unlabored respirations, skin warm/dry/pink. Patient states feeling better. 02:29 Reassessment: Patient appears in no apparent distress at this time. Patient and/or jd3 family updated on plan of care and expected duration. Pain level reassessed. Patient is alert, oriented x 3, equal unlabored respirations, skin warm/dry/pink. Patient states feeling better. Vital Signs: 00:05 Weight 70.31 kg; Height 5 ft. 8 in. (172.72 cm); Pain 10/10; sg 00:06 BP 161 / 108; Pulse 105; Resp 19 S; Temp 97.8(TE); Pulse Ox 100% on R/A; jd3 01:41 BP 116 / 79; Pulse 73; Resp 17 S; Pulse Ox 96% on R/A; jd3 00:05 Body Mass Index 23.57 (70.31 kg, 172.72 cm) ED Course: 12/27 23:58 Patient arrived in ED. bp1 12/28 00:05 Vidal Starr, RN is Primary Nurse. jd3 00:07 Triage completed. sg 00:08 Arm band placed on. sg 00:09 Patient has correct armband on for positive identification. Bed in low position. Call jd3 light in reach. Side rails up X 1. Pulse ox on. NIBP on. 00:10 Jon Calzada MD is Attending Physician. 7 00:35 Inserted saline lock: 20 gauge in right antecubital area, using aseptic technique. jd3 Blood collected. 01:24 CT Abd/Pelvis - IV Contrast Only In Process Unspecified. EDMS 02:28 No provider procedures requiring assistance completed. IV discontinued, intact, jd3 bleeding controlled, No redness/swelling at site. Pressure dressing applied. Administered Medications: 00:47 Drug: morphine 4 mg Route: IVP; Site: right antecubital; jd3 02:27 Follow up: Response: No adverse reaction; RASS: Alert and Calm (0) jd3 00:47 Drug: Zofran (Ondansetron) 4 mg Route: IVP; Site: right antecubital; jd3 02:28 Follow up: Response: No adverse reaction jd3 00:49 Drug: NS 0.9% 1000 ml Route: IV; Rate: 1000 ml; Site: right antecubital; jd3 01:45 Follow up: Response: No adverse reaction; IV Status: Completed infusion; IV Intake: jd3 1000ml Intake: 01:45 IV: 1000ml; Total: 1000ml. jd3 Outcome: 02:14 Discharge ordered by . 7 02:28 Discharged to home ambulatory, with family. jd3 02:28 Condition: stable 02:28 Discharge instructions given to patient, Instructed on discharge instructions, follow up and referral plans. medication usage, Demonstrated understanding of instructions, follow-up care, medications, Prescriptions given X 3. 02:29 Patient left the ED. jd3 Signatures: Dispatcher [employer] EDMS Randy Galvez RN RN sg Davies, Jonathon, RN RN jMaria Luisa Dangelo Maurice, MD MD [facility]
== END 2019-12-29 02:29 | disposition home or self-care (01) ==
LOC: ER 23:56
DX: R10.9 Unspecified abdominal pain (principal); I10 Essential (primary) hypertension; Z95.818 Presence of other cardiac implants and grafts
CPT/HCPCS: 36415; 74177; 80048; 80076; 81003; 82565; 83690; 85025; 93005; 96361; 96374; 96375; 99284; J2405; J7030; Q9967

== ENCOUNTER 2020-01-01 13:32 | Emergency (ER) | payer SELFPAY ==
--- OUTSIDE RECORDS SUMMARY | 2020-01-01 14:09 | XMS REPORT | Continuity of Care Document ---
:1960 Author Organization [facility] t Address [address] [place] [address] Care Team Providers Name Role Phone Darien [...] 2019-10-31 2019-10-31 Telemed[facility] RAHUL Ledezma [phone] 09:01:49 09:21:49 ne Visit Jimbo Medellin [id number] [place] [id number] Nayely [phone] nal 059 Building Results This patient has no known results.
[2020-01-01] MEDS ORDERED: LIDOCAINE VISCOUS 2% SOLN 15 ML UDC ONE (14:59)
[2020-01-01] MEDS ORDERED: MAGNE/ALUM HYDROXD 30 ML UCUP ONE (14:59)
[2020-01-01 16:21] LABS: Absolute Lymphocytes (CBC) 2.1 K/uL (0.7-4.9); Basophils % 0.7 % (0-1.3); Hematocrit 48.5 % (36.0-45.0); Lymphocytes % 28.5 % (15.3-44.8); MPV 9.1 fL (7.6-11.3); RBC Red Blood Cell Count 5.21 M/uL (3.86-4.86)
[2020-01-01 16:32] LABS: ALT/SGPT 20 U/L (12-78); AST/SGOT 25 U/L (15-37); Albumin 3.9 g/dL (3.4-5.0); Alkaline Phosphatase 113 U/L (45-117); BUN Blood Urea Nitrogen 9 mg/dL (7-18); Bicarbonate 28 mmol/L (21-32); Bilirubin Direct < 0.1 mg/dL (0-0.2); Bilirubin Total 0.5 mg/dL (0.2-1.0); Glucose Level 107 mg/dL (74-106); Lipase 70 U/L (73-393); Potassium 3.8 mmol/L (3.5-5.1); Protein, Total 8.3 g/dL (6.4-8.2); Sodium Level 138 mmol/L (136-145)
[2020-01-01] MEDS ORDERED: NA CHLORIDE 0.9% 1,000 ML ONE (18:35)
[2020-01-01] MEDS ORDERED: dexAMETHasone 10 MG/ML VIAL ONE (18:35)
--- NOTE | 2020-01-01 19:03 | ER ---
Nurse's Notes [facility] Name: Leonela Stinson Age: 59 yrs Sex: Female : 1960 Arrival Date: 01/01/2020 Time: 13:35 Bed 8 Private MD: Diagnosis: Gastro-esophageal reflux disease Presentation: 12/31 13:50 Chief complaint: Patient states: Seen in ED on Tuesday and dx w/ diverticulosis, ss prescribed Bentyl and Zofran but not feeling any better, c/o pain in entire abdomen that radiates to back, also c/o nausea and lack of appetite, denies V/D or fever. Coronavirus screen: Patient denies a cough. Patient denies shortness of breath or difficulty breathing. Patient denies measured and/or subjective temperature greater than 100.4F prior to today's visit. Patient denies travel on a cruise ship or to a country the [facility] currently lists as an affected area. Patient denies contact with known and/or suspected case of COVID-19. Ebola Screen: No symptoms or risks identified at this time. Initial Sepsis Screen: Does the patient meet any 2 criteria? No. Patient's initial sepsis screen is negative. Does the patient have a suspected source of infection? No. Patient's initial sepsis screen is negative. Risk Assessment: Do you want to hurt yourself or someone else? Patient reports no desire to harm self or others. Onset of symptoms was January 01, 2020. 13:50 Method Of Arrival: Ambulatory ss 13:50 Acuity: EMMY 3 ss Historical: - Allergies: 14:58 No Known Allergies; tw2 - Home Meds: 13:54 Metoprolol Tartrate Oral [Active]; Famotidine Oral [Active]; aspirin 81 mg Oral TbEC 1 ss tab once daily [Active]; amlodipine oral [Active]; Clonazepam Oral [Active]; Nexium Oral [Active]; 14:37 clopidogrel 75 mg Oral tab 1 tab once daily [Active]; tw2 - PMHx: 13:54 Hypertension; ss - PSHx: 13:54 Hysterectomy; Bladder suspension; Cardiac Stent x4; ss - Immunization history:: Adult Immunizations unknown. - Social history:: Smoking status: Patient reports the use of cigarette tobacco products, smokes one-half pack cigarettes per day. Screenin:36 Abuse screen: Denies threats or abuse. Nutritional screening: No deficits noted. tw2 Tuberculosis screening: No symptoms or risk factors identified. Fall Risk None identified. Assessment: 14:30 General: Appears in no apparent distress. uncomfortable, well groomed, Behavior is tw2 calm, cooperative, appropriate for age. Pain: Complains of pain in abdomen. Neuro: Level of Consciousness is awake, alert, obeys commands, Oriented to person, place, time, situation. Cardiovascular: Capillary refill < 3 seconds Patient's skin is warm and dry. Respiratory: Airway is patent Respiratory effort is even, unlabored, Respiratory pattern is regular, symmetrical, Breath sounds are clear bilaterally. GI: Abdomen is round non-distended, Bowel sounds present X 4 quads. Abd is soft X 4 quads Reports lower abdominal pain, upper abdominal pain, "i just have this burning on the inside and its all over, i drove myself but the medicine isnt helping and i just need to know if there is something else we can try because my doctor cant get me in for another week", provider notified and medicated as ordered. : No signs and/or symptoms were reported regarding the genitourinary system. EENT: No signs and/or symptoms were reported regarding the EENT system. Derm: No signs and/or symptoms reported regarding the dermatologic system. Musculoskeletal: Range of motion: intact in all extremities. 15:30 Reassessment: Patient appears in no apparent distress at this time. No changes from tw2 previously documented assessment. Patient and/or family updated on plan of care and expected duration. Pain level reassessed. Patient is alert, oriented x 3, equal unlabored respirations, skin warm/dry/pink. Patient states symptoms have improved. 16:46 Reassessment: Patient appears in no apparent distress at this time. No changes from tw2 previously documented assessment. Patient and/or family updated on plan of care and expected duration. Pain level reassessed. Patient is alert, oriented x 3, equal unlabored respirations, skin warm/dry/pink. 17:36 Reassessment: Patient appears in no apparent distress at this time. No changes from tw2 previously documented assessment. Patient and/or family updated on plan of care and expected duration. Pain level reassessed. Patient is alert, oriented x 3, equal unlabored respirations, skin warm/dry/pink. 18:43 Reassessment: Patient appears in no apparent distress at this time. No changes from tw2 previously documented assessment. Patient and/or family updated on plan of care and expected duration. Pain level reassessed. Patient is alert, oriented x 3, equal unlabored respirations, skin warm/dry/pink. Vital Signs: 13:50 BP 137 / 83; Pulse 71; Resp 17; Temp 98.8; Pulse Ox 97% on R/A; Weight 89.36 kg; Height ss 5 ft. 2 in. (157.48 cm); Pain 7/10; 14:54 BP 125 / 85; Pulse 75; Resp 16; Pulse Ox 96% on R/A; tw2 15:50 BP 129 / 73; Pulse 72; Resp 17; Pulse Ox 96% on R/A; tw2 16:45 BP 128 / 74; Pulse 60; Resp 17; Pulse Ox 98% on R/A; tw2 17:38 BP 138 / 73; Pulse 65; Resp 17; Pulse Ox 97% on R/A; tw2 18:42 BP 116 / 66; Pulse 71; Resp 17; Pulse Ox 96% on R/A; tw2 13:50 Body Mass Index 36.03 (89.36 kg, 157.48 cm) ED Course: 13:35 Patient arrived in ED. ag5 13:53 Triage completed. ss 13:54 Arm band placed on Patient placed in waiting room, Patient notified of wait time. ss 14:15 Bed in low position. Call light in reach. Pulse ox on. NIBP on. tw2 14:36 Oralia Travis RN is Primary Nurse. tw2 14:45 Jon Calzada MD is Attending Physician. 7 16:05 Inserted saline lock: 20 gauge in right antecubital area, using aseptic technique. tw2 Blood collected. 19:02 Jorge Camacho MD is Referral Physician. [facility] 19:12 No provider procedures requiring assistance completed. IV discontinued, intact, tw2 bleeding controlled, No redness/swelling at site. Pressure dressing applied. Administered Medications: 14:54 Drug: GI Cocktail without - (Maalox Suspension 30 ml, Lidocaine Liquid 2 % 15 tw2 ml) Route: PO; 15:54 Follow up: Response: No adverse reaction; Pain is decreased tw2 18:35 Drug: Decadron - Dexamethasone 10 mg Route: IVP; Site: right antecubital; tw2 19:12 Follow up: Response: No adverse reaction tw2 18:35 Drug: NS 0.9% 1000 ml Route: IV; Rate: 1 bolus; Site: right antecubital; tw2 19:12 Follow up: Response: No adverse reaction; IV Status: Completed infusion; Order to tw2 discontinue infusion; IV Intake: 800ml Intake: 19:12 IV: 800ml; Total: 800ml. tw2 Outcome: 19:03 Discharge ordered by MD. bruce 19:12 Discharged to home ambulatory. tw2 19:12 Condition: stable 19:12 Discharge instructions given to patient, Instructed on discharge instructions, follow up and referral plans. Demonstrated understanding of instructions, follow-up care. 19:36 Patient left the ED. mertd3 Signatures: Hiral Webster RN RN ss Oralia Travis RN RN tw2 Vidal Strar RN RN jd3 Benedict Stubbs [facility] Jon Calzada MD MD 7
--- NOTE | 2020-01-01 19:03 | EDPHYS ---
Physician Documentation [facility] Name: Leonela Stinson Age: 59 yrs Sex: Female : 1960 Arrival Date: 01/01/2020 Time: 13:35 Bed 8 Private MD: ED Physician Jon Calzada HPI: 12/31 16:22 This 59 yrs old Female presents to ER via Ambulatory with complaints of mh7 Abdominal Pain, Back Pain, . 16:23 The patient presents with abdominal pain in the upper abdomen. Onset: The mh7 symptoms/episode began/occurred 1 week(s) ago. The symptoms radiate to back. Associated signs and symptoms: Pertinent positives: nausea, Pertinent negatives: anorexia, blood in stools, chest pain, constipation, fever, headache, hematuria, palpitations, shortness of breath, vaginal discharge, vomiting, vomiting blood. The symptoms are described as burning, intermittent, waxing/waning. Modifying factors: The symptoms are alleviated by nothing, the symptoms are aggravated by food. Severity of pain: At its worst the pain was moderate yesterday, in the emergency department the pain has improved moderately. The patient has been recently seen at the [facility] Emergency Department, this week. Historical: - Allergies: 14:58 No Known Allergies; tw2 - Home Meds: 13:54 Metoprolol Tartrate Oral [Active]; Famotidine Oral [Active]; aspirin 81 mg Oral TbEC 1 ss tab once daily [Active]; amlodipine oral [Active]; Clonazepam Oral [Active]; Nexium Oral [Active]; 14:37 clopidogrel 75 mg Oral tab 1 tab once daily [Active]; tw2 - PMHx: 13:54 Hypertension; ss - PSHx: 13:54 Hysterectomy; Bladder suspension; Cardiac Stent x4; ss - Immunization history:: Adult Immunizations unknown. - Social history:: Smoking status: Patient reports the use of cigarette tobacco products, smokes one-half pack cigarettes per day. ROS: 16:23 Constitutional: Negative for fever, chills, and weight loss, Eyes: Negative for injury, mh7 pain, redness, and discharge, ENT: Negative for injury, pain, and discharge, Neck: Negative for injury, pain, and swelling, Cardiovascular: Negative for chest pain, palpitations, and edema, Respiratory: Negative for shortness of breath, cough, wheezing, and pleuritic chest pain, : Negative for injury, bleeding, discharge, and swelling, MS/Extremity: Negative for injury and deformity, Skin: Negative for injury, rash, and discoloration, Neuro: Negative for headache, weakness, numbness, tingling, and seizure, Psych: Negative for depression, anxiety, suicide ideation, homicidal ideation, and hallucinations, Allergy/Immunology: Negative for hives, rash, and allergies, Endocrine: Negative for neck swelling, polydipsia, polyuria, polyphagia, and marked weight changes, Hematologic/Lymphatic: Negative for swollen nodes, abnormal bleeding, and unusual bruising. Exam: 16:23 Constitutional: This is a well developed, well nourished patient who is awake, alert, mh7 and in no acute distress. Head/Face: Normocephalic, atraumatic. Eyes: Pupils equal round and reactive to light, extra-ocular motions intact. Lids and lashes normal. Conjunctiva and sclera are non-icteric and not injected. Cornea within normal limits. Periorbital areas with no swelling, redness, or edema. Neck: Trachea midline, no thyromegaly or masses palpated, and no cervical lymphadenopathy. Supple, full range of motion without nuchal rigidity, or vertebral point tenderness. No Meningismus. Chest/axilla: Normal chest wall appearance and motion. Nontender with no deformity. No lesions are appreciated. Cardiovascular: Regular rate and rhythm with a normal S1 and S2. No gallops, murmurs, or rubs. Normal PMI, no JVD. No pulse deficits. Respiratory: Lungs have equal breath sounds bilaterally, clear to auscultation and percussion. No rales, rhonchi or wheezes noted. No increased work of breathing, no retractions or nasal flaring. 16:23 Back: No spinal tenderness. No costovertebral tenderness. Full range of motion. Skin: Warm, dry with normal turgor. Normal color with no rashes, no lesions, and no evidence of cellulitis. MS/ Extremity: Pulses equal, no cyanosis. Neurovascular intact. Full, normal range of motion. Neuro: Awake and alert, GCS 15, oriented to person, place, time, and situation. Cranial nerves II-XII grossly intact. Motor strength 5/5 in all extremities. Sensory grossly intact. Cerebellar exam normal. Normal gait. Psych: Awake, alert, with orientation to person, place and time. Behavior, mood, and affect are within normal limits. 16:23 Abdomen/GI: Inspection: abdomen appears normal, Bowel sounds: normal, in all quadrants, Palpation: mild abdominal tenderness, in the epigastric area, Rectal exam: the exam is deferred, because of patient request, Indicators: McBurney's point is not tender, Clayton's sign is negative, Rovsing's sign is negative, Obturator sign is negative, Psoas sign is negative, Liver: no appreciated palpable abnormalities, Hernia: not appreciated. Vital Signs: 13:50 BP 137 / 83; Pulse 71; Resp 17; Temp 98.8; Pulse Ox 97% on R/A; Weight 89.36 kg; Height ss 5 ft. 2 in. (157.48 cm); Pain 7/10; 14:54 BP 125 / 85; Pulse 75; Resp 16; Pulse Ox 96% on R/A; tw2 15:50 BP 129 / 73; Pulse 72; Resp 17; Pulse Ox 96% on R/A; tw2 16:45 BP 128 / 74; Pulse 60; Resp 17; Pulse Ox 98% on R/A; tw2 17:38 BP 138 / 73; Pulse 65; Resp 17; Pulse Ox 97% on R/A; tw2 18:42 BP 116 / 66; Pulse 71; Resp 17; Pulse Ox 96% on R/A; tw2 13:50 Body Mass Index 36.03 (89.36 kg, 157.48 cm) MDM: 15:16 Patient medically screened. [facility] 19:01 Differential diagnosis: gastritis, gastroesophageal reflux disease, pancreatitis, 7 Peptic Ulcer Disease. Data reviewed: vital signs, nurses notes, old medical records, lab test result(s), CBC, electrolytes. Data interpreted: glass technician: rate is 71 beats/min, rhythm is normal sinus rhythm, regular, Interpretation: normal rate, normal rhythm, Pulse oximetry: on room air is 96 %. Interpretation: normal. Counseling: I had a detailed discussion with the patient and/or guardian regarding: the historical points, exam findings, and any diagnostic results supporting the discharge/admit diagnosis, lab results, the need for outpatient follow up, to return to the emergency department if symptoms worsen or persist or if there are any questions or concerns that arise at home. Response to treatment: the patient's symptoms have resolved after treatment, the patient's blood pressure is in an acceptable range, mental status has returned to baseline, the patient no longer shows bradycardia, the patient is not short of breath, the patient is not tachycardic, the patient's pain is gone, the patient's temperature has normalized. 12/31 15:50 Order name: Basic Metabolic Panel; Complete Time: 17:11 [facility] 12/31 15:50 Order name: CBC with Diff; Complete Time: 17:11 12/31 15:50 Order name: Hepatic Function; Complete Time: 17:11 [facility] 12/31 15:50 Order name: Lipase; Complete Time: 17:11 [facility] 12/31 15:50 Order name: IV Saline Lock; Complete Time: 16:04 [facility] 12/31 15:50 Order name: Labs collected and sent; Complete Time: 16:05 7 Administered Medications: 14:54 Drug: GI Cocktail without - (Maalox Suspension 30 ml, Lidocaine Liquid 2 % 15 tw2 ml) Route: PO; 15:54 Follow up: Response: No adverse reaction; Pain is decreased tw2 18:35 Drug: Decadron - Dexamethasone 10 mg Route: IVP; Site: right antecubital; tw2 19:12 Follow up: Response: No adverse reaction tw2 18:35 Drug: NS 0.9% 1000 ml Route: IV; Rate: 1 bolus; Site: right antecubital; tw2 19:12 Follow up: Response: No adverse reaction; IV Status: Completed infusion; Order to [facility] discontinue infusion; IV Intake: 800ml Disposition: 01/01/20 19:03 Discharged to Home. Impression: Gastro-esophageal reflux disease. - Condition is Stable. - Discharge Instructions: Gastroesophageal Reflux Disease, Adult, [id number], Food Choices for Gastroesophageal Reflux Disease, Adult, [id number]. - Medication Reconciliation Form, Thank You Letter, Antibiotic Education, Prescription Opioid Use form. - Follow up: Jorge Camacho MD; When: 1 - 2 days; Reason: Worsening of condition, Recheck today's complaints, Re-evaluation by your physician. - Problem is an ongoing problem. - Symptoms have improved. Signatures: Dispatcher [employer] EDOR Philly Colón, VARNISH COOKER-C VARNISH COOKER-Csnw Hiral Webster, RN RN ss Oralia Travis RN RN tw2 Vidal Starr RN RN jd3 Jon Calzada MD MD mh7 Corrections: (The following items were deleted from the chart) 19:36 19:03 01/01/2020 19:03 Discharged to Home. Impression: Gastro-esophageal reflux jd3 disease. Condition is Stable. Forms are Medication Reconciliation Form, Thank You Letter, Antibiotic Education, Prescription Opioid Use. Follow up: Jorge Camacho; When: 1 - 2 days; Reason: Worsening of condition, Recheck today's complaints, Re-evaluation by your physician. Problem is an ongoing problem. Symptoms have improved. mh7
[2020-01-01 19:44] VITALS: TEMP 98.8
[2020-01-01 19:50] VITALS: BP 116/66; O2SAT 96
== END 2020-01-01 19:36 | disposition home or self-care (01) ==
LOC: ER 13:32
DX: K21.9 Gastro-esophageal reflux disease without esophagitis (principal); I10 Essential (primary) hypertension; F17.210 Nicotine dependence, cigarettes, uncomplicated; Z95.5 Presence of coronary angioplasty implant and graft
CPT/HCPCS: 36415; 80048; 80076; 83690; 85025; 96361; 96374; 99284; J1100; J7030

== ENCOUNTER 2020-05-07 19:53 | Inpatient (IN) | payer SELFPAY ==
[2020-05-07 20:33] LABS: Absolute Lymphocytes (CBC) 2.4 K/uL (0.7-4.9); Hematocrit 47.2 % (36.0-45.0); Lymphocytes % 35.3 % (15.3-44.8); MPV 8.8 fL (7.6-11.3); Protime INR 0.97; RBC Red Blood Cell Count 5.07 M/uL (3.86-4.86)
[2020-05-07 20:49] LABS: ALT/SGPT 13 U/L (12-78); AST/SGOT 13 U/L (15-37); Albumin 3.5 g/dL (3.4-5.0); Alkaline Phosphatase 105 U/L (45-117); BUN Blood Urea Nitrogen 8 mg/dL (7-18); Bicarbonate 26 mmol/L (21-32); Bilirubin Direct < 0.1 mg/dL (0-0.2); Bilirubin Total 0.4 mg/dL (0.2-1.0); Glucose Level 112 mg/dL (74-106); NT PRO-BNP 33 pg/mL (<125); Potassium 3.4 mmol/L (3.5-5.1); Protein, Total 7.6 g/dL (6.4-8.2); Sodium Level 140 mmol/L (136-145); Troponin (Emerg Dept Use Only) < 0.02 ng/mL (0.0-0.045)
--- NOTE | 2020-05-07 20:54 | ER ---
Nurse's Notes [facility] Name: Leonela Stinson Age: 59 yrs Sex: Female : 1960 Arrival Date: 05/07/2020 Time: 19:55 Bed 4 Private MD: Diagnosis: Chest pain, unspecified Presentation: 05/07 20:04 Acuity: EMMY 3 sg 20:04 Chief complaint: Patient states: Chest pain that began 3 days ago, reports having sg anxiety and shortness of breath as well as feeling weak all over, states i feel like i could just pass out asleep at any moment, pt states the pain is now radiating into the left arm at this time, causing some discomfort, denies N/V//D/Fever at this time. Coronavirus screen: Client denies travel out of the [place] in the last 14 days. At this time, the client does not indicate any symptoms associated with coronavirus-19. Ebola Screen: Patient negative for fever greater than or equal to 101.5 degrees Fahrenheit, and additional compatible Ebola Virus Disease symptoms Patient denies exposure to infectious person. Patient denies travel to an Ebola-affected area in the 21 days before illness onset. No symptoms or risks identified at this time. Initial Sepsis Screen: Does the patient meet any 2 criteria? No. Patient's initial sepsis screen is negative. Does the patient have a suspected source of infection? No. Patient's initial sepsis screen is negative. Risk Assessment: Do you want to hurt yourself or someone else? Patient reports no desire to harm self or others. Onset of symptoms was May 04, 2020. Care prior to arrival: None. Transition of care: patient was not received from another setting of care. 20:04 Method Of Arrival: Ambulatory sg Historical: - Allergies: 20:04 No Known Allergies; sg - Home Meds: 20:04 amlodipine oral [Active]; aspirin 81 mg Oral TbEC 1 tab once daily [Active]; Clonazepam sg Oral [Active]; clopidogrel 75 mg Oral tab 1 tab once daily [Active]; Famotidine Oral [Active]; Metoprolol Tartrate Oral [Active]; Nexium Oral [Active]; - PMHx: 20:04 Hypertension; sg - PSHx: 20:04 Hysterectomy; Bladder suspension; Cardiac Stent x4; sg - Immunization history:: Adult Immunizations up to date. - Social history:: Smoking status: Patient denies any tobacco usage or history of. Screenin:19 Abuse screen: Denies threats or abuse. Denies injuries from another. Nutritional rr5 screening: No deficits noted. Tuberculosis screening: No symptoms or risk factors identified. Fall Risk IV access (20 points). Total Chen Fall Scale indicates No Risk (0-24 pts). Assessment: 20:40 General: Appears in no apparent distress. comfortable, Behavior is calm, cooperative, rr5 appropriate for age. Pain: Complains of pain in chest Pain currently is 0 out of 10 on a pain scale. Quality of pain is described as aching, Pain began gradually, Is intermittent. Neuro: Level of Consciousness is awake, alert, obeys commands, Oriented to person, place, time, situation. Cardiovascular: Reports chest pain, shortness of breath, Capillary refill < 3 seconds Patient's skin is warm and dry. Respiratory: Reports shortness of breath Airway is patent Respiratory effort is even, unlabored, Respiratory pattern is regular, symmetrical. GI: No signs and/or symptoms were reported involving the gastrointestinal system. : No signs and/or symptoms were reported regarding the genitourinary system. EENT: No signs and/or symptoms were reported regarding the EENT system. Derm: Skin is intact, is healthy with good turgor, Skin temperature is warm. Musculoskeletal: Circulation, motion, and sensation intact. Capillary refill < 3 seconds. 21:15 Reassessment: Patient appears in no apparent distress at this time. Patient is alert, rr5 oriented x 3, equal unlabored respirations, skin warm/dry/pink. hospitalist at bedside. 22:30 Reassessment: Patient appears in no apparent distress at this time. Patient is alert, rr5 oriented x 3, equal unlabored respirations, skin warm/dry/pink. awaiting for room assignment. 23:30 Reassessment: Patient appears in no apparent distress at this time. Patient and/or rr5 family updated on plan of care and expected duration. Pain level reassessed. Patient is alert, oriented x 3, equal unlabored respirations, skin warm/dry/pink. 05/08 01:00 Reassessment: Patient appears in no apparent distress at this time. Patient is alert, rr5 oriented x 3, equal unlabored respirations, skin warm/dry/pink. for transfer to room 407 awake alert no complaints made. Vital Signs: 05/07 20:18 BP 120 / 82; Pulse 86; Resp 16; Temp 98; Pulse Ox 98% ; Weight 74.84 kg; Height 5 ft. 3 rr5 in. (160.02 cm); Pain 0/10; 21:29 BP 127 / 92; Pulse 76; Resp 17; Pulse Ox 99% ; rr5 22:30 BP 126 / 89; Pulse 70; Resp 16; Pulse Ox 99% ; rr5 23:30 BP 119 / 62; Pulse 79; Resp 17; Pulse Ox 98% ; rr5 05/08 00:20 BP 121 / 62; Pulse 73; Resp 17; Pulse Ox 100% ; rr5 01:00 BP 127 / 88; Pulse 77; Resp 16; Pulse Ox 100% on R/A; sg 05/07 20:18 Body Mass Index 29.23 (74.84 kg, 160.02 cm) rr5 ED Course: 05/07 19:55 Patient arrived in ED. mr 19:58 Roderick Hanley MD is Attending Physician. tw4 20:00 Reilly Weston PA is PHCP. jr8 20:04 Triage completed. sg 20:04 Arm band placed on. sg 20:05 Rehan Glynn RN is Primary Nurse. rr5 20:18 EKG done, by ED staff. Inserted saline lock: 20 gauge in right forearm, using aseptic rr5 technique. Blood collected. 20:20 Patient has correct armband on for positive identification. Placed in gown. Bed in low rr5 position. Call light in reach. Side rails up X2. property assessment monitor on. Pulse ox on. NIBP on. 20:49 XRAY Chest (1 view) In Process Unspecified. EDMS 20:53 Chay Hoover MD is Hospitalizing Provider. jr8 21:29 No provider procedures requiring assistance completed. Patient admitted, IV remains in rr5 place. intact, No redness/swelling at site. Patient maintains SpO2 saturation greater than 95% on room air. 21:58 covid. rr5 Administered Medications: 21:04 Drug: Aspirin Chewable Tablet 324 mg Route: PO; rr5 22:00 Follow up: Response: No adverse reaction rr5 Outcome: 20:54 Decision to Hospitalize by Provider. jr8 05/08 01:00 Admitted to Tele accompanied by tech, via stretcher, room 407, with chart, Report sg called to Ivet GODOY Condition: good Instructed on the need for admit, safety practices, Demonstrated understanding of instructions, follow-up care. 01:27 Patient left the ED. rv Signatures: Dispatcher [employer] EDMS Randy Galvez, RN RN sg Deirdre Ramires mr Trista, Reilly, PA PA jr8 Roderick Hanley MD MD tw4 Matt Oseguera RN RN rv Rehan Glynn, RN RN rr5
--- NOTE | 2020-05-07 20:54 | EDPHYS ---
Physician Documentation [facility] Name: Leonela Stinson Age: 59 yrs Sex: Female : 1960 Arrival Date: 05/07/2020 Time: 19:55 Bed 4 Private MD: ED Physician Roderick Hanley HPI: 05/07 20:26 This 59 yrs old Female presents to ER via Ambulatory with complaints of Chest jr8 Pain. 20:26 The patient or guardian reports chest pain that is located primarily in the substernal jr8 area, anterior chest wall, left. Onset: gradually, 3 day(s) ago, and became worse. The pain radiates to the left shoulder. Associated signs and symptoms: Pertinent positives: palpitations, shortness of breath. The chest pain is described as dull, a pressure. Duration: The patient or guardian reports multiple episodes, that wax and wane, the episodes last approximately 1 hour(s). Modifying factors: The symptoms are alleviated by nothing. the symptoms are aggravated by activity. Severity of pain: At its worst the pain was moderate in the emergency department the pain has improved mildly. It is unknown whether or not the patient has had similar symptoms in the past. The patient has not recently seen a physician. Historical: - Allergies: 20:04 No Known Allergies; sg - Home Meds: 20:04 amlodipine oral [Active]; aspirin 81 mg Oral TbEC 1 tab once daily [Active]; Clonazepam sg Oral [Active]; clopidogrel 75 mg Oral tab 1 tab once daily [Active]; Famotidine Oral [Active]; Metoprolol Tartrate Oral [Active]; Nexium Oral [Active]; - PMHx: 20:04 Hypertension; sg - PSHx: 20:04 Hysterectomy; Bladder suspension; Cardiac Stent x4; sg - Immunization history:: Adult Immunizations up to date. - Social history:: Smoking status: Patient denies any tobacco usage or history of. ROS: 20:28 Eyes: Negative for injury, pain, redness, and discharge, ENT: Negative for injury, jr8 pain, and discharge, Neck: Negative for injury, pain, and swelling, Abdomen/GI: Negative for abdominal pain, nausea, vomiting, diarrhea, and constipation, Back: Negative for injury and pain, MS/Extremity: Negative for injury and deformity, Skin: Negative for injury, rash, and discoloration, Neuro: Negative for headache, weakness, numbness, tingling, and seizure. 20:28 Cardiovascular: Positive for chest pain, palpitations, Negative for edema, orthopnea, paroxysmal nocturnal dyspnea. 20:28 Respiratory: Positive for dyspnea on exertion, shortness of breath. Exam: 20:28 Eyes: Pupils equal round and reactive to light, extra-ocular motions intact. Lids and jr8 lashes normal. Conjunctiva and sclera are non-icteric and not injected. Cornea within normal limits. Periorbital areas with no swelling, redness, or edema. ENT: Nares patent. No nasal discharge, no septal abnormalities noted. Tympanic membranes are normal and external auditory canals are clear. Oropharynx with no redness, swelling, or masses, exudates, or evidence of obstruction, uvula midline. Mucous membranes moist. Neck: Trachea midline, no thyromegaly or masses palpated, and no cervical lymphadenopathy. Supple, full range of motion without nuchal rigidity, or vertebral point tenderness. No Meningismus. Cardiovascular: Regular rate and rhythm with a normal S1 and S2. No gallops, murmurs, or rubs. Normal PMI, no JVD. No pulse deficits. Respiratory: Lungs have equal breath sounds bilaterally, clear to auscultation and percussion. No rales, rhonchi or wheezes noted. No increased work of breathing, no retractions or nasal flaring. Abdomen/GI: Soft, non-tender, with normal bowel sounds. No distension or tympany. No guarding or rebound. No evidence of tenderness throughout. Back: No spinal tenderness. No costovertebral tenderness. Full range of motion. Skin: Warm, dry with normal turgor. Normal color with no rashes, no lesions, and no evidence of cellulitis. MS/ Extremity: Pulses equal, no cyanosis. Neurovascular intact. Full, normal range of motion. Neuro: Awake and alert, GCS 15, oriented to person, place, time, and situation. Cranial nerves II-XII grossly intact. Motor strength 5/5 in all extremities. Sensory grossly intact. Cerebellar exam normal. Normal gait. Vital Signs: 20:18 BP 120 / 82; Pulse 86; Resp 16; Temp 98; Pulse Ox 98% ; Weight 74.84 kg; Height 5 ft. 3 rr5 in. (160.02 cm); Pain 0/10; 21:29 BP 127 / 92; Pulse 76; Resp 17; Pulse Ox 99% ; rr5 22:30 BP 126 / 89; Pulse 70; Resp 16; Pulse Ox 99% ; rr5 23:30 BP 119 / 62; Pulse 79; Resp 17; Pulse Ox 98% ; rr5 05/08 00:20 BP 121 / 62; Pulse 73; Resp 17; Pulse Ox 100% ; rr5 01:00 BP 127 / 88; Pulse 77; Resp 16; Pulse Ox 100% on R/A; sg 05/07 20:18 Body Mass Index 29.23 (74.84 kg, 160.02 cm) rr5 MDM: 05/07 19:58 Patient medically screened. tw4 20:51 HEART Score: History: Moderately Suspicious (1), ECG: Non specific repolarization jr8 disturbance / LBTB / PM (1), Age: > 45 and < 65 years (1), Risk Factors: > or = 3 Risk factors for atherosclerotic disease (2), [Hypercholesterolemia] [Hypertension] [Obesity] Troponin: < or = 1 x Normal Limit (0), Total Score = 5. The patient was given aspirin in the Emergency Department. Data reviewed: vital signs, nurses notes, lab test result(s), EKG, radiologic studies, plain films. Data interpreted: Pulse oximetry: on room air is 98 %. Interpretation: normal. Counseling: I had a detailed discussion with the patient and/or guardian regarding: the historical points, exam findings, and any diagnostic results supporting the discharge/admit diagnosis, lab results, radiology results, the need for further work-up and treatment in the hospital. 05/07 20:00 Order name: Basic Metabolic Panel; Complete Time: 20:50 jr8 05/07 20:00 Order name: CBC with Diff; Complete Time: 20:35 jr8 05/07 20:00 Order name: LFT's; Complete Time: 20:50 jr8 05/07 20:00 Order name: Magnesium; Complete Time: 20:50 jr8 05/07 20:00 Order name: NT PRO-BNP; Complete Time: 20:50 jr8 05/07 20:00 Order name: PT-INR; Complete Time: 20:35 jr8 05/07 20:00 Order name: Troponin (emerg Dept Use Only); Complete Time: 20:50 jr8 05/07 21:04 Order name: COVID-19 rr5 05/07 21:20 Order name: Urinalysis; Complete Time: 14:39 EDMS 05/07 21:20 Order name: Basic Metabolic Panel EDMS 05/07 21:20 Order name: Basic Metabolic Panel; Complete Time: 14:39 EDMS 05/07 21:20 Order name: CBC with Automated Diff EDMS 05/07 21:20 Order name: CBC with Automated Diff; Complete Time: 14:39 EDMS 05/07 21:20 Order name: Magnesium EDMS 05/07 20:00 Order name: XRAY Chest (1 view); Complete Time: 14:39 8 05/07 20:00 Order name: EKG; Complete Time: 20:01 8 05/07 21:17 Order name: CONS Physician Consult EDMS 05/07 21:20 Order name: NPO EDMS 05/07 21:20 Order name: Magnesium; Complete Time: 14:39 EDMS 05/07 21:20 Order name: Protime (+INR) EDMS 05/07 21:20 Order name: Protime (+INR); Complete Time: 14:39 EDMS 05/07 21:20 Order name: PTT, Activated Partial Thromb EDMS 05/07 21:20 Order name: PTT, Activated Partial Thromb; Complete Time: 14:39 EDMS 05/07 21:20 Order name: Troponin I EDMS 05/07 21:20 Order name: Troponin I; Complete Time: 14:39 EDMS 05/07 21:21 Order name: Troponin I; Complete Time: 14:39 EDMS 05/07 21:21 Order name: Troponin I EDMS 05/07 21:21 Order name: Troponin I EDMS 05/07 21:21 Order name: Echo with Doppler EDMS 05/07 20:00 Order name: Cardiac monitoring; Complete Time: 20:18 8 05/07 20:00 Order name: EKG - Nurse/Tech; Complete Time: 20:15 8 05/07 20:00 Order name: IV Saline Lock; Complete Time: 20:18 8 05/07 20:00 Order name: Labs collected and sent; Complete Time: 20:18 [facility] 05/07 20:00 Order name: O2 Per Protocol; Complete Time: 20:18 8 05/07 20:00 Order name: O2 Sat Monitoring; Complete Time: 20:18 jr8 Administered Medications: 21:04 Drug: Aspirin Chewable Tablet 324 mg Route: PO; rr5 22:00 Follow up: Response: No adverse reaction rr5 Disposition: 05/08 07:03 Co-signature as Attending Physician, Roderick Hanley MD I agree with the assessment and tw4 plan of care. Disposition: 05/07/20 20:54 Hospitalization ordered by Chay Hoover for Observation. Preliminary diagnosis is Chest pain, unspecified. - Bed requested for Telemetry/MedSurg (observation). - Status is Observation. rv - Condition is Stable. - Problem is new. - Symptoms have improved. Signatures: Dispatcher [employer] EDMS Randy Galvez, RN RN Reilly Lundy PA PA jr8 Suzy Lunsford RN RN tl1 Roderick Hanley MD MD tw4 Matt Oseguera RN RN rv Rehan Glynn RN RN rr5 Corrections: (The following items were deleted from the chart) 05/07 23:46 20:53 Hospitalization Ordered by Chay Hoover MD for Observation. Preliminary tl1 diagnosis is Chest pain, unspecified. Bed requested for Telemetry/MedSurg (observation). Status is Observation. Condition is Stable. Problem is new. Symptoms have improved. jr8 05/08 01:27 05/07 23:46 05/07/2020 20:54 Hospitalization Ordered by Chay Hoover MD for rv Observation. Preliminary diagnosis is Chest pain, unspecified. Bed requested for Telemetry/MedSurg (observation). Status is Observation. Condition is Stable. Problem is new. Symptoms have improved. tl1
--- NOTE | 2020-05-07 21:11 | RAD REPORT ---
EXAM DESCRIPTION: RAD - Chest Single View - 05/07/2020 8:49 pm CLINICAL HISTORY: CHEST PAIN Chest pain. COMPARISON: Chest Single View dated 10/21/2018; CHEST PA AND LAT 2 VIEW dated 01/17/2009; ABDOMEN ACUT E SERIES dated 09/28/2002 FINDINGS: Portable technique limits examination quality. The lungs are grossly clear. The heart is normal in size. No displaced fractures. IMPRESSION: No acute intrathoracic process suspected.
[2020-05-07] MEDS ORDERED: ASPIRIN 81 MG CHEWABLE TABLET ONE (21:12)
--- NOTE | 2020-05-07 22:21 | P.HP ---
Certification for Inpatient Patient admitted to: Observation With expected LOS: <2 Midnights Patient will require the following post-hospital care: None Practitioner: I am a practitioner with admitting privileges, knowledge of patient current condition, hospital course, and medical plan of care. Services: Services provided to patient in accordance with Admission requirements found in Title 42 Section 412.3 of the Code of Federal Regulations Patient History Date of Service: 05/07/20 Reason for admission: Acute coronary syndrome/chest pain History of Present Illness: 59-year-old female with past medical history of cardiac stents x4, myocardial infarct and hypertension presents to the emergency room complaining of chest pain. Patient says that the onset was gradual over the past 3 days. She reports the chest pain mostly in the substernal area and anterior chest wall extending to the left side. Patient states that she will have some radiation to the left shoulder and jaw but it is intermittent. States the chest pain comes and goes. The latest episode was approximately 1 hr prior to arrival to the ED. In the emergency room troponins are negative x1. A EKG with no acute pathology. Rest of lab work is fairly unremarkable. On examination the patient is alert and oriented x3, pleasant and cooperative. In no distress. She is still complaining of the same chest pain. States that she has been needing to have a stress test done but due to Covid it has been rescheduled several times. Patient we placed in observation and further evalua sylvester. Home medications list reviewed: Yes - Past Medical/Surgical History Diabetic: No -: Cardiac stents x4 -: Essential hypertension -: Hysterectomy -: Bladder suspend -: Cardiac stents x4 Psychosocial/ Personal History: Lives at home - Family History Family History: Reviewed- Non-Contributory - Social History Smoking Status: Never smoker Alcohol use: No CD- Drugs: No Caffeine use: No Place of Residence: Home Review of Systems General: As per HPI Eyes: Unremarkable ENT: Unremarkable Respiratory: Unremarkable Cardiovascular: Chest Pain, As per HPI Gastrointestinal: Unremarkable Genitourinary: Unremarkable Musculoskeletal: Unremarkable Integumentary: Unremarkable Neurological: Unremarkable Lymphatics: Unremarkable Physical Examination - Vital Signs Temperature: 98 F Blood Pressure: 120/82 Pulse: 86 Respirations: 16 Pulse Ox (%): 98 (RA) - Physical Exam General: Alert, In no apparent distress, Oriented x3 HEENT: Atraumatic, Normocephalic, PERRLA, Mucous membr. moist/pink Neck: Supple, No Thyromegaly, Other (Trachea midline) Respiratory: Clear to auscultation bilaterally, Normal air movement Cardiovascular: No edema, Normal pulses, Regular rate/rhythm, Normal S1 S2 Capillary refill: <2 Seconds Gastrointestinal: Normal bowel sounds, Soft and benign, Non-distended Musculoskeletal: No clubbing, No swelling, No contractures, No erythema Integumentary: No rashes, No breakdown, No significant lesion, No tenderness/swelling Neurological: Normal gait, Normal speech, Normal strength at 5/5 x4 extr, Normal tone - Studies Laboratory Data (last 24 hrs) 05/07/20 20:10: PT 11.4, INR 0.97 05/07/20 20:10: WBC 6.7, Hgb 16.1 H, Hct 47.2 H, Plt Count 260 05/07/20 20:10: Sodium 140, Potassium 3.4 L, BUN 8, Creatinine 0.65, Glucose 112 H, Magnesium 2.0, Total Bilirubin 0.4, AST 13 L, ALT 13, Alkaline Phosphatase 105 Assessment and Plan - Plan Impression: Acute Coronary Syndrome with a history of cardiac stents x4: Essential hypertension: Plan: Acute Coronary Syndrome with a history of cardiac stents x4: Will continue to trend troponins. 1st troponin was negative in the ED. Place on telemetry. Echocardiogram for the morning. Cardiology consult. Monitor vitals. Essential hypertension: Monitor blood pressure. Will resume all medications once verified. Discharge Plan: Home - Advance Directives Does patient have a Living Will: No Does patient have a Durable POA for Healthcare: No - Code Status/Comfort Care Code Status Assessed: Yes Time Spent Managing Pts Care (In Minutes): 55
[2020-05-08] MEDS: HEPARIN 5000 UNIT/ML 1 ML VIAL SQ SCH ×2 (01:00→08:43)
[2020-05-08 01:53] VITALS: BMI 29.2
[2020-05-08] MEDS ORDERED: HEPARIN 5000 UNIT/ML 1 ML VIAL ONE (02:37)
[2020-05-08 04:03] LABS: Absolute Lymphocytes (CBC) 3.6 K/uL (0.7-4.9); Basophils % 0.8 % (0-1.3); Hematocrit 43.3 % (36.0-45.0); Lymphocytes % 52.5 % (15.3-44.8); MPV 9.2 fL (7.6-11.3)
[2020-05-08 04:06] LABS: Protime INR 0.96
[2020-05-08 04:25] LABS: BUN Blood Urea Nitrogen 9 mg/dL (7-18); Bicarbonate 29 mmol/L (21-32); Glucose Level 94 mg/dL (74-106); Magnesium 2.2 mg/dL (1.8-2.4); Potassium 3.4 mmol/L (3.5-5.1); Sodium Level 141 mmol/L (136-145)
[2020-05-08] MEDS ORDERED: POTASSIUM 25 MEQ EFFERV TAB PO ONE (04:57)
[2020-05-08 05:23] LABS: Urine Appearance CLEAR; Urine Bilirubin NEGATIVE (NEG); Urine Blood NEGATIVE (NEG); Urine Color YELLOW; Urine Glucose NEGATIVE (NEG); Urine Protein NEGATIVE (NEG); Urine Specific Gravity 1.015 (1.005-1.030); Urine Urobilinogen 0.2 mg/dL (0.2-1.0)
[2020-05-08 05:28] LABS: Urine Microscopic Reflex NO UMIC
[2020-05-08 08:58] VITALS: O2SAT 94
[2020-05-08] MEDS ORDERED: ASPIRIN 325 MG TAB PO SCH (09:00)
[2020-05-08] MEDS ORDERED: FAMOTIDINE 20 MG TAB PO SCH (09:00)
[2020-05-08] MEDS ORDERED: METOPROLOL TAR 50 MG TAB PO SCH (09:00)
[2020-05-08] MEDS ORDERED: AMLODIPINE 10 MG TAB PO SCH (09:00)
[2020-05-08] MEDS ORDERED: REGADENOSON 0.4 MG/5 ML SYR IV ONE (10:09)
--- NOTE | 2020-05-08 11:10 | P.PN ---
Subjective Date of Service: 05/08/20 Chief Complaint: Acute coronary syndrome/chest pain Subjective: Improving (Patient is feeling better. She is waiting on a nuclear stress. The stress lab called me regarding lack of sufficient staff to carry out the test today. They will do the resting part today, and lexiscan tomorrow.) Physical Examination - Vital Signs Temperature: 98.6 F Blood Pressure: 127/72 Pulse: 83 Respirations: 18 Pulse Ox (%): 94 - Physical Exam General: Alert, In no apparent distress, Cooperative HEENT: Atraumatic, Normocephalic, EOMI Neck: Supple Respiratory: Clear to auscultation bilaterally, Normal air movement Cardiovascular: No edema, Normal pulses, Regular rate/rhythm, Normal S1 S2 Gastrointestinal: Normal bowel sounds, Soft and benign, Non-distended, No tenderness - Studies Laboratory Data (last 24 hrs) 05/07/20 20:10: PT 11.4, INR 0.97 05/07/20 20:10: WBC 6.7, Hgb 16.1 H, Hct 47.2 H, Plt Count 260 05/07/20 20:10: Sodium 140, Potassium 3.4 L, BUN 8, Creatinine 0.65, Glucose 112 H, Magnesium 2.0, Total Bilirubin 0.4, AST 13 L, ALT 13, Alkaline Phosphatase 105 Assessment & Plan - Problems (Diagnosis) (1) Chest pain Current Visit: Yes Status: Acute Physician Review Additional Text: Assessment Patient is a 59 year old female with known PMH of CAD S/P PCI admitted overnight for chest pain. ACS has been ruled out. She is pending a nuclear stress test. She has a counseling aide outpatient and has been trying to get outpatient stress test but it was difficult to schedule due to the ongoing pandemic. Chest pain CAD S/PCI PLAN Nuclear stress test and cardiology consult Continue telemetry monitoring Start ASA and atorvastatin Continue home dose of metoprolol Follow up HbA1c and lipid panel
[2020-05-08 12:09] VITALS: BP 128/74; TEMP 98.2
--- NOTE | 2020-05-08 13:13 | RAD REPORT ---
EXAM DESCRIPTION: NM - Rest Stress Cardiac Imaging - 05/08/2020 1:06 pm CLINICAL HISTORY: Chest pain. COMPARISON: None. TECHNIQUE: The patient was administered 10.9mCi of Tc 99m Sestamibi prior to resting SPECT imaging of the heart. The patient was then administered 30.3 mCi of Tc 99m Sestamibi following exercise or ph armacologic stress. Multiplanar SPECT images were reviewed. FINDINGS: There is uniformity of radiotracer uptake involving the entire left ventricular myocardiu m on rest and stress images. The left ventricular ejection fraction equals 80% IMPRESSION: Negative for a myocardial perfusion defect
--- NOTE | 2020-05-08 13:40 | P.DS ---
Admission Date: 05/07/20 Discharge Date: 05/08/20 Disposition: ROUTINE DISCHARGE Discharge Condition: GOOD Reason for Admission: Acute coronary syndrome/chest pain - Problems (1) Chest pain Current Visit: Yes Status: Acute Hospital Course: Patient is a 59 year old female with a PMH of CAD s/p PCI who was admitted with chest pain. ACS was ruled out. She also had a negative nuclear stress test. 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 Her hospital course was otherwise unremarkable. Vital Signs/Physical Exam: Temp Pulse Resp BP Pulse Ox 98.2 F 79 18 128/74 96 05/08/20 12:00 05/08/20 12:00 05/08/20 12:00 05/08/20 12:00 05/08/20 12:00 General: In no apparent distress, Cooperative HEENT: Atraumatic, Normocephalic, EOMI Neck: Supple Respiratory: Clear to auscultation bilaterally, Normal air movement Cardiovascular: No edema, Normal pulses, Regular rate/rhythm, Normal S1 S2 Gastrointestinal: Normal bowel sounds, Soft and benign, Non-distended Musculoskeletal: No clubbing, No swelling, No contractures, No erythema, No tenderness, No warmth Integumentary: No rashes, No breakdown, No significant lesion, No tenderness/swelling, No erythema, No warmth, No cyanosis Neurological: Normal speech, Sensation intact Laboratory Data at Discharge: WBC 6.8 K/uL (4.3-10.9) 05/08/20 03:06 Hgb 14.5 g/dL (12.0-15.0) 05/08/20 03:06 Hct 43.3 % (36.0-45.0) 05/08/20 03:06 Plt Count 241 K/uL (152-406) 05/08/20 03:06 PT 11.3 SECONDS (9.5-12.5) 05/08/20 03:06 INR 0.96 05/08/20 03:06 APTT 29.2 SECONDS (24.3-36.9) 05/08/20 03:06 Sodium 141 mmol/L (136-145) 05/08/20 03:06 Potassium 3.9 mmol/L (3.5-5.1) 05/08/20 12:11 BUN 9 mg/dL (7-18) 05/08/20 03:06 Creatinine 0.47 mg/dL (0.55-1.3) L 05/08/20 03:06 Glucose 94 mg/dL (74-106) 05/08/20 03:06 Magnesium 2.2 mg/dL (1.8-2.4) 05/08/20 03:06 Total Bilirubin 0.4 mg/dL (0.2-1.0) 05/07/20 20:10 AST 13 U/L (15-37) L 05/07/20 20:10 ALT 13 U/L (12-78) 05/07/20 20:10 Alkaline Phosphatase 105 U/L (45-117) 05/07/20 20:10 Troponin I < 0.02 ng/mL (0.0-0.045) 05/08/20 09:09 Home Medications: Amlodipine [Norvasc*] 10 mg PO DAILY 05/08/20 Aspirin Tab [Vicki Aspirin*] 325 mg PO DAILY 05/08/20 Atorvastatin Calcium [Lipitor] 80 mg PO BEDTIME #30 tab 05/08/20 Famotidine [Pepcid*] 20 mg PO DAILY 05/08/20 Metoprolol Tartrate [Lopressor*] 50 mg PO BID 05/08/20 New Medications: Atorvastatin Calcium [Lipitor] 80 mg PO BEDTIME #30 tab Diet: AHA
[2020-05-08] MEDS ORDERED: LORazepam 2 MG/ML VIAL IV ONE (14:00)
--- NOTE | 2020-05-08 14:55 | TREADPHA ---
DX: CHEST PAIN Date of Study: 05/08/2020 Ht: 5' 3 " Wt: 165 lb 0 oz Consulting Physician: VAIBHAV MEDICATIONS: NORVASC, ASPIRIN, HEPARIN, LOPRESSOR HISTORY: 59 YEAR OLD FEMALE WITH HISTORY OF HYPERTENSION, MYOCARDIAL INFARCTION, CARDIAC STENTS X4, ANXIETY AND GERD. ADMITTED FOR CHEST PAIN. PHYSICIAL EXAMINATION: RESTING B.P.: 131/84 RESTING H.R.: 89 RESTING EKG: NORMAL PROTOCOL: LEXISCAN EXERCISE TIME: 3:30 B.P. AT PEAK STRESS: 113/79 IMPRESSION: LEXISCAN STRESS TEST PERFORMED. CARDIOLITE INJECTED PER PROTOCOL. NO SUPRAVENTRICULAR TACHYCARDIA OR VENTRICULAR TACHYCARDIA NOTED. PREMATURE VENTRICULAR COMPLEXES NOTED TROUGHOUT TEST. PATIENT REPORTS MILD CHEST PAIN THAT WAS RESOLVED DURING RECOVERY. RESPIRIATORY EVEN AND NON LABORED. PATIENT TOLERATED WELL. NO STRESS INDUCED EKG CHANGES.
--- NOTE | 2020-05-08 14:57 | ECHO ---
HEIGHT: 5 ft 3 in WEIGHT: 165 lb 0 oz DATE OF STUDY: 05/08/[address]: Ankit Amato 2-DIMENSIONAL: YES M.MODE: YES DOPPLER: YES COLOR FLOW: YES TDS: NO PORTABLE: NO DEFINITY: NO BUBBLE STUDY: NO DIAGNOSIS: CHEST PAIN CARDIAC HISTORY: CATHERIZATION: YES SURGERY: NO PROSTHETIC VALVE: NO PACEMAKER: NO MEASUREMENTS (cm) DIASTOLIC (NORMALS) SYSTOLIC (NORMALS) IVSd 0.8 (0.6-1.2) LA Diam 3.1 (1.9-4.0) LVEF 71% LVIDd 3.7 (3.5-5.7) LVIDs 2.2 (2.0-3.5) %FS 39% LVPWd 0.9 (0.6-1.2) Ao Diam 2.5 (2.0-3.7) 2 DIMENSIONAL ASSESSMENT: RIGHT ATRIUM: NORMAL LEFT ATRIUM: NORMAL RIGHT VENTRICLE: NORMAL LEFT VENTRICLE: NORMAL TRICUSPID VALVE: NORMAL MITRAL VALVE: NORMAL PULMONIC VALVE: NORMAL AORTIC VALVE: NORMAL PERICARDIAL EFFUSION: MILD AORTIC ROOT: NORMAL LEFT VENTRICULAR WALL MOTION: NORMAL DOPPLER/COLOR FLOW: NORMAL COMMENTS: NORMAL LEFT VENTRICULAR EJECTION FRACTION 55-60%. NORMAL WALL MOTION. TECHNOLOGIST: Sean CRUZ
--- NOTE | 2020-05-08 15:11 | CON ---
Date of Consultation: 05/08/2020 Reason For Consultation: Chest pain, possible acute coronary syndrome. History Of Present Illness: A 59-year-old female, history of coronary artery disease status post car diac stents placement about 4 to 5 years ago, history of hypertension, anxiety disorder, presented to the emergency room with chest pain that has been gradually worsening over the past 3 days, substerna l, radiates to the left arm. She follows up with a wet trimmer out of [place] and no recent stres s test was done. She denies having any nausea or diaphoresis. No exertional chest pain. Past Medical History: As outlined above in the HPI. Medications: Refer to reconciliation sheet for detailed list. Allergies: NO KNOWN DRUG ALLERGIES. Past Surgical History: Hysterectomy and cardiac stent placement, bladder lift and hysterectomy. Family History: No premature coronary artery disease or cancer. Review of Systems: All systems reviewed and they were negative except what mentioned in the HPI. Physical Examination: Vital Signs: Temperature is 98.2, pulse 79, breathing 18, blood pressure 128/74, saturating 96% on r oom air. General: Pleasant, middle-aged female, in no apparent distress. Head and Neck: Pupils are equal, reactive to light. Intact eye movements. No JVD. No cervical lym phadenopathy. Neck is supple. Thyroid is not enlarged. Lungs: Clear to auscultation bilaterally. No rhonchi, rales, or crackles. No accessory muscle use. Heart: Regular rate and rhythm. No extra sounds. Abdomen: Soft, nontender. Bowel sounds positive. No organomegaly. No masses or hernia. No rigidi ty or rebound. Extremities: No edema, clubbing, or cyanosis. Intact pulses. Skin: No rash. Neurologic: Alert, awake, oriented x3. No acute focal deficit appreciated. Investigations: Troponin x2 are negative. Creatinine is 0.47. Hemoglobin is 14.5. The nuclear str ess test was negative. Echocardiogram with normal ejection fraction. Assessment And Recommendations: Chest pain in the setting of the presence of coronary artery disease . Exams are negative. Chest pain is atypical. Nuclear stress test is negative and echo was normal. The patient was assured and okay from Cardiology standpoint to discharge home with followup with he r primary wet trimmer as an outpatient. An aggressive management of coronary artery disease is jose angel mmended including high dose statin, aspirin, and blood pressure control. Thank you for the courtesy of the consultation. CHAPIS Voice ID: [id number] Report ID: [id number]
[2020-05-08] MEDS ORDERED: ATORVASTATIN 80 MG TAB PO SCH (21:00)
--- OUTSIDE RECORDS SUMMARY | 2020-05-08 22:35 | XMS REPORT | Summary of Care ---
:1960 Author Organization [facility] Address [address] [place] [id number] Care Team Providers Name Role Phone Pcp, Does Not Have A Primary Care Provider Juve Montez Primary Care Provider Reason for Referral (Routine) Status Reason Specialty Diagnoses / Procedures Referred By C ontact Referred To Contact Closed Cardiology Diagnoses Chest pain, unspecified type Jimbo Ledezma MD Procedures DOBUTAMINE STRESS ECHO Preferred Location: [address] [place], [place] [address] Phone: Reason for Visit Reason Comments Chest Pain Encounter Details Date Type Department Care Team Description 10/31/2019 Telemedicine Visit [facility] Jimbo Ledezma MD Chest pain, unspecified type (Primary Dx ); Cardiology- [address] [place] [address] Coronary a rtery disease involving [place] coronary artery of [place] heart with angina pectoris; [facility] Essential hypertension; [address] [place] [address] [address] Dyslipidemia; [address], [address] [place], [place] Obesity (BMI 30-39.9) [place] [phone] Allergies Active Allergy Reactions Severity Noted Date Comments Levofloxacin Swelling 01/08/2020 Lisinopril Cough 11/30/2017 documented as of this encounter (statuses as of 02/29/2020) Medications Medication Sig Dispensed Refills Start Date [...] as of this encounter (statuses as of 02/29/2020) Active Problems Problem Noted Date Dyslipidemia 03/13/2017 Coronary artery disease involving [place] coronary [place] of [place] heart 03/13/2017 with angina pectoris Obesity (BMI 30-39.9) 03/12/2017 NSTEMI (non-ST elevated myocardial infarction) 016 Family history of ischemic heart disease 09/23/2015 HTN (hypertension) 09/23/2015 Chest pain 09/22/2015 documented as of this encounter (statuses as of 02/29/2020) Social History Tobacco Use Types Packs/Day Years Used Date Current Every Day Smoker Smokeless Tobacco: Never Used Comments: slowly stopping over time Alcohol Use Drinks/Week oz/Week Comments No Sex Assigned at Date Recorded Not on file Job Start Date Occupation Industry Not on file Not on file Not on file Travel History Travel Start Travel End No recent travel history available. COVID-19 Exposure Response Date Recorded In the last month, have you been in contact with No / Unsure 02/13/2020 11:05 AM CDT someone who was confirmed or suspected to have Coronavirus / COVID-19? documented as of this encounter Last Filed [...] CHERRIE in 09/2015. She was seen in [facility] in 09/2015 for NSTEMI. She was transferred to [facility] where she underwent PCI with [...] file Gets together: Not on file Attends sikhism service: Not on file Active member of [...] R07.9 786.50 2. Coronary artery disease involving [place] coronary artery of [place] heart with angina pectoris I25.119 414.01 413.9 [...] for telehealth sevice provided ? My location: [facility] cardiology clinic ? Patient location: Home ? Format: Communication with patient was conducted via Telephone due to patient unable to obtain video call option ? A total of 25 minutes spent on the telephone with the patient Addendum--02/29/2020--Moderate cardiac risk for GI procedure. Jimbo Ledezma MD, FAC, AYSHA Cash Applications Clerk, Division of Cardiology [facility] documented in this encounter Plan of Treatment Health Maintenance Due Date Last Done Comments HEPATITIS C (HCV) SCREEN 1960 DTaP,Tdap,and Td Vaccines (1 - 1973 Tdap) Depression Screening 1974 PAP SMEAR 1983 Breast Cancer Screening 2002 (MAMMOGRAM) COLONOSCOPY 2012 Zoster Recombinant Vaccine 2012 (SHINGRIX) (1 of 2) LUNG CANCER SCREEN: Recommended 2017 for age 55-80 with 30 + pack year history INFLUENZA VACCINE (#1) 2020 PNEUMOCOCCAL 0-64 YEARS COMBINED Aged Out No longer eligible based on SERIES patient's age to complete this topic documented as of this encounter Implants Implanted Type Area Animal Groomer Device Identifier Shelf Exp iration Model / Serial Date / Lot Stent STENT Heart documented as of this encounter Results Not on filedocumented in this encounter Visit Diagnoses Diagnosis Chest pain, unspecified type - Primary Coronary artery disease involving [place] coronary artery of [place] heart with angina pectoris Essential hypertension Unspecified essential hypertension Dyslipidemia Other and unspecified hyperlipidemia Obesity (BMI 30-39.9) Obesity, unspecified documented in this encounter
--- OUTSIDE RECORDS SUMMARY | 2020-05-08 22:35 | XMS REPORT ---
:1960 Author Organization [employer] Care Team Providers Name Role Phone Laney Erickson Provider Role Unavailable Allergies, Adverse Reactions, Alerts Substance Reaction Event Type Losartan Potassium Info Not Available Drug Allergy lisinopril Info Not Available Non Drug Allergy Problems Problem Type Condition Code Onset Dates Condition Statu s Assessment Hematuria R31.9 Active Medications Medication Code Code Instructions Start End Status Dosage System Date Date Aspirin 81 [facility] 55695886098 81 MG Orally Active 1 ta blet Once a day Clonazepam [facility] 44568274527 0.5 MG Orally Active 1 t ablet Once a day at bedtime Amlodipine ND 80426243251 10 MG Orally Active 1 ta blet Besylate Once a day Nexium [facility] 28149811063 20 MG Orally Active 1 capsu le Once a day Metoprolol ND 19753156505 50 MG Orally Active 1 ta blet Tartrate Twice a day with food Sucralfate ND 07160172961 1 GM Orally Active 1 tab let Twice a day on an empty stomach Results No Known Results Summary Purpose eClinicalWorks Submission
--- OUTSIDE RECORDS SUMMARY | 2020-05-08 22:35 | XMS REPORT | Summary of Care ---
:1960 Author Organization [facility] - [facility] Address [address] [place] [id number] Care Team Providers Name Role Phone Juve Montez Primary Care Provider Reason for Referral Other (STAT) Status Reason Specialty Diagnoses / Referred By Contact Refe rred To Procedures Contact New Request Diagnoses Abdominal pain, unspecified abdominal location Hiatal hernia Cyst of left ovary Undifferentiated abdominal pain Cholo Garcia MD [place], Procedures Discharge Follow-up: Specialty Provider RAYSHAWN HEBERT; [address] [place] [address] Rayshawn Momin MD [address], [place] [address] [id number] Phone: [address] [place] [address] Fax: MRI/CAT Scan (STAT) Status Reason Specialty Diagnoses / Referred By Referred To Procedures Contact Contact New Request Diagnostic Diagnoses Abdominal pain, unspecified abdominal location Cholo Garcia, Radiology Procedures CT ABDOMEN PELVIS W CONTRAST [address] [place] [address] [address] [place] [address] Reason for Visit Reason Comments Abdominal Pain Auth/Cert Status Reason Specialty Diagnoses / Referred By Referred To Procedures Contact Contact Emergency Medicine [facility] Em ergency Dept [address] [place] [address] Fax: Encounter Details Date Type Department Care Team Description 02/13/2020 Emergency [facility]-Emergency Cholo Garcia MD Abdominal pain, unspecified abdominal lo cation (Primary Dx); Department [address] Hiatal hernia; [address] [facility] [address] Cyst of left ovary; [place] [address] Undifferentiated abdominal pain [place], [place] [address] Allergies Active Allergy Reactions Severity Noted Date Comments Levofloxacin Swelling 01/08/2020 Lisinopril Cough 11/30/2017 documented as of this encounter (statuses as of 02/13/2020) Medications Medication Sig Dispensed Refills Start Date End Date Status aspirin 81 mg chewable Take 1 Tab by 30 Tab 5 09/26/2015 Active tablet mouth daily. atorvastatin 40 mg Take 1 tablet 90 tablet 3 09/16/2017 Active tablet by mouth daily. famotidine 20 mg tablet Take 1 tablet 180 tablet 3 09/16/2017 Active by mouth 2 (two) times daily. metoprolol tartrate 50 Take 1 tablet 180 tablet 3 09/16/2017 Active mg tablet by mouth 2 (two) times daily. nitroglycerin 0.[address] 1 tablet 1 Bottle 3 09/16/2017 Active sublingual tablet under the tongue every 5 (five) minutes as needed for Chest pain. losartan 100 mg tablet Take 1 tablet 30 tablet 2 11/30/2017 Active by mouth daily. ondansetron 4 mg Take 1 tablet 20 tablet 0 02/13/2020 Active disintegrating by mouth every tabletIndications: 4 (four) hours Abdominal pain, as needed for unspecified abdominal Nausea and location, Hiatal hernia, Vomiting (N/V). Cyst of left ovary, Undifferentiated abdominal pain dicyclomine (BENTYL) 10 Take 1 capsule 20 capsule 0 02/13/2020 Active mg capsuleIndications: by mouth 4 Abdominal pain, (four) times unspecified abdominal daily. 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 Obesity (BMI 30-39.9) 03/12/2017 NSTEMI (non-ST elevated myocardial infarction) 016 Family history of ischemic heart disease 09/23/2015 HTN (hypertension) 09/23/2015 Chest pain 09/22/2015 documented as of this encounter (statuses as of 02/13/2020) Social History Tobacco Use Types Packs/Day Years [...] of this encounter Last Filed Vital Signs Vital Sign Reading Time Taken Comments Blood Pressure 148/88 02/13/2020 3:10 PM CDT Pulse 90 02/13/2020 3:10 PM CDT Temperature 36.4 C (97.5 F) 02/13/2020 11:20 AM CDT Respiratory Rate 15 02/13/2020 3:10 PM CDT Oxygen Saturation 97% 02/13/2020 3:10 PM CDT Inhaled Oxygen Concentration - - Weight 83.9 kg (185 lb) 02/13/2020 11:16 AM CDT Height - - Body Mass Index 33.84 01/08/2020 1:25 AM CDT documented in this encounter Discharge Instructions InstructionsCholo Garcia MD - 02/13/2020 RETURN FOR ANY QUESTIONS OR CONCERNS Today you were seen by Cholo Garcia Jr., MD You were seen today for Chief Complaint Patient presents with Abdominal Pain Your ER diagnosis was ICD-10-CM ICD-9-CM 1. Abdominal pain, unspecified abdominal location R10.9 789.00 2. Hiatal hernia K44.9 553.3 3. Cyst of left ovary N83.202 620.2 4. Undifferentiated abdominal pain R10.9 789.00 NO LIFE-THREATENING FINDINGS ON TODAY'S EXAM. YOUR PRESCRIPTIONS : Check out [employer] for medication discounts Medication List ASK your doctor about these medications aspirin 81 mg chewable tablet Take 1 Tab by mouth daily. atorvastatin 40 mg tablet Commonly known as: LIPITOR Take 1 tablet by mouth daily. famotidine 20 mg tablet Commonly known as: PEPCID AC Take 1 tablet by mouth 2 (two) times daily. losartan 100 mg tablet Commonly known as: COZAAR Take 1 tablet by mouth daily. metoprolol tartrate 50 mg tablet Commonly known as: LOPRESSOR Take 1 tablet by mouth 2 (two) times daily. nitroglycerin 0.4 mg sublingual tablet Commonly known as: NITROSTAT Place 1 tablet under the tongue every 5 (five) minutes as needed for Chest pain. ER precautions and follow up : 1. Return to ER if your symptoms should worsen or fail to improve within 72 hours. 2. The care provided in the emergency room was for acute problems only. 3. You should follow up with your primary care provider within 72 hours. 4. Fill and take all your medications as prescribed. 5. Make sure you are staying adequately hydrated. Busque attencion immediatamente si usted tiene los sitomas sigue, vuelve peor o si hay sitomas nuevas o para cualquiera preoccupacion incluyendo dolor del pecho, falta aire, se siente debile, mas fievre, mas dolor, nausea, vomitando, sangrando que no es normal, confusion, baja or pierdas conciencia. MAY FOLLOW-UP WITH A PROVIDER OF YOUR CHOICE, SUCH : 1. A PHYSICIAN OF YOUR CHOICE 2. [facility], . LOCATIONS IN [facility] 3. [facility], [address] [place] [address]; [phone] OR, IF YOU WISH TO FOLLOW-UP WITHIN THE [facility] HE[facility] SYSTEM, MAY TRY THESE OPTIONS (CLINIC APPOINTMENTS AVAILABLE ON [id number] BASIS): 1. SCHEDULE AN APPOINTMENT ONLINE AT [facility] 2. OR CALL THE [facility] ACCESS CENTER AT OR 3. OR CALL YOUR [facility] PHYSICIAN'S OFFICE DIRECTLY IF YOU ARE ALREADY AN ESTABLISHED [facility] PATIENT. [facility] RETURN TO WORK / SCHOOL EXCUSE Leonela Stinson WAS SEEN IN THE ER AND DISCHARGED 02/13/2020 TODAY, 3:15 PM & May return to Work / School / Incarceration on X with activity as tolerated indicated below. ___The following limitations apply until pt is seen by Physician and cleared to return to normal activity. _X_ Off for two days and return to activity as tolerated at work or school ___ No Sports ___ No work ___ Do not return until fever free for 24 hours. ___ No school CHOLO GARCIA Jr., MD [facility] EMERGENCY DEPRTMENT [address] [place] [address] [place] [address] ### The patient may have been given Narcotic pain medications during their stay in the ED that may show up on a Drug Screen. The hospital discharge paper work will identify these medications. AttachmentsThe following attachments cannot be sent through Care Everywhere. Abdominal Pain, Adult (Mauritian)Cysts, Ovarian (Mauritian)Hiatal Hernia, What Is a (Mauritian)documented in this encounter Plan of Treatment Health [...] of this encounter Implants Implanted Type Area See Supervisor Device Identifier Shelf Exp iration Model / Serial Date / Lot Stent STENT Heart documented as of this encounter Procedures Procedure Name Priority Date/Time Associated Diagnosis Comme nts URINALYSIS STAT 02/13/2020 2:09 Abdominal pain, Results for this PM CDT unspecified procedure are i n abdominal location the resul ts section. CT ABDOMEN PELVIS W STAT 02/13/2020 1:27 Abdominal pain, R esults for this CONTRAST PM CDT unspecified procedure are i n abdominal location the resul ts section. CBC WITH DIFFERENTIAL STAT 02/13/2020 11:40 Abdominal pain, Results for this AM CDT unspecified procedure are i n abdominal location the resul ts section. LACTIC ACID WHOLE STAT 02/13/2020 11:40 Abdominal pain, Res ults for this BLOOD AM CDT unspecified procedure are i n abdominal location the resul ts section. ACTIVATED PARTIAL STAT 02/13/2020 11:40 Abdominal pain, Res ults for this THRMPLAS MARISELA AM CDT unspecified procedure are i n abdominal location the resul ts section. PROTHROMBIN TIME / STAT 02/13/2020 11:40 Abdominal pain, Re sults for this INR AM CDT unspecified procedure are i n abdominal location the resul ts section. CBC WITH DIFFERENTIAL Routine 02/13/2020 11:40 Abdominal pain, Results for this AM CDT unspecified procedure are i n abdominal location the resul ts section. BASIC METABOLIC PANEL STAT 02/13/2020 11:40 Abdominal pain, Results for this (NA, K, CL, CO2, AM CDT unspecified procedure a re in GLUCOSE, BUN, abdominal location the resu lts CREATININE, CA) section. HEPATIC FUNCTION STAT 02/13/2020 11:40 Abdominal pain, Resu lts for this PANEL ([id number]) AM CDT unspecified procedure are in (ALB,T.PRO,BILI abdominal location the re sults T,BU/BC,ALT,AST,ALK section. PHOS) LIPASE STAT 02/13/2020 11:40 Abdominal pain, Results for this AM CDT unspecified procedure are i n abdominal location the resul ts section. AMYLASE STAT 02/13/2020 11:40 Abdominal pain, Results for this AM CDT unspecified procedure are i n abdominal location the resul ts section. CONSENT/REFUSAL FOR Routine 02/13/2020 11:06 DIAGNOSIS AND AM CDT TREATMENT documented in this encounter Results Urinalysis (02/13/2020 2:09 PM CDT) Pathologist Sig nature APPEARANCE Clear Clear [facility] COLOR Yellow Yellow [facility] PH 6.0 4.8 - 8.0 [facility] SP GRAVITY >1.060 (H) 1.003 - 1.030 [facility] GLU U QUAL Normal Normal [facility] BLOOD Negative Negative [facility] KETONES Negative Negative [facility] PROTEIN Negative Negative [facility] UROBILIN Normal Normal [facility] BILIRUBIN Negative Negative [facility] NITRITE Negative Negative [facility] LEUK CASSIE Negative Negative [facility] RBC/HPF 3 0 - 3 HPF [facility] WBC/HPF 1 0 - 5 HPF [facility] BACTERIA Negative Negative [facility] MUCOUS Slight (A) Negative LPF [facility] SQ EPITH <1 HPF [facility] Specimen Urine - URINE, CLEAN CATCH Performing Organization Address City/State/Zipcode Phone Number [facility] CLIA: [id number], [address] [place] [address] ABDOMEN PELVIS W CONTRAST (02/13/2020 1:27 PM CDT) Specimen Narrative Performed At CT Abdomen and Pelvis with intravenous c ontrast. PACS/VR/DOSE CLINICAL HISTORY: Abdominal infection in cluding peritonitis DOSE: Up-to-date CT equipment and radiation dose reduc tion techniques were employed. CTDIvol: 9.07 mGy. DLP: 477 mGy-cm. TECHNIQUE : Contiguous axial imaging fro m the level of the lung bases through the pubic symphysis were perform ed after the uncomplicated administration of Omnipaque contrast mat erial. Coronal and sagittal reconstructions were obtained. Auto mA and/or iterativ e reconstruction were used to reduce radiation dose. FINDINGS: Lower lungs: Minimal congestion in the r ight lower lung. Sliding hiatal hernia. Coronary atherosclerosis. Liver, Gallbladder and Spleen: Liver is 19.2 cm in length with prominent Esequiel's lobe. In the gallbladder bed region of the li rod parenchyma, 5 mm size cystic lesion is seen. Another possible subcentim eter cystic lesion in the left lobe near the falciform sulcus. Mild diffuse hepatic steatosis is suspected. Spleen is approximately 9.2 x 3 cm. No c alcified gallstones detected. Peritoneum: No free air or free fluid. No lymphadenopathy. Pancreas and Adrenals: Unremarkable pa ncreas and adrenal glands. Kidneys and Ureters: No visible calculi in the renal collecting systems. No hydroureter or hydronephrosis. No enh ancing kidney lesions detected. Vessels: Atherosclerosis of aorta and iliac arteries. Note made of 2 right renal arteries and one left renal artery arising from the abdominal aorta. Retroperitoneum: No abnormal fluid or ly mphadenopathy. Bowel: No acute findings. Minimal diverticular disease of the sigmoid colon noted without any acute changes. Almost the entire lar ge bowel is collapsed with small amount of retained liquid fec al material seen in the sigmoid colon. Bladder and Reproductive Organs: S/P hysterectomy. 21 mm lesion in the left side of the pelvis could be cystic lesio n in the left ovary with old intracystic hemorrhage. No gross pathology in incompletely diste nded urinary bladder. Bones: Exaggerated lumbar lordosis. No compression def ormity in the lower thoracic or lumbar vertebral bodies. No signs of AVN i n the femoral heads. Bone island noted in the neck of the lef t femur. Soft tissues: Small indirect type bilate ral inguinal hernia. CONCLUSION: 1. No acute intra-abdominal or pelvic abnormalities de tected. Large bowel is collapsed with a small amount of yesi ined liquid fecal material. Findings are nonspecific. Please correla te with clinical history for nonspecific colitis/gastroenteritis. 2. Moderate-sized hiatal hernia. 3. S/P hysterectomy. Small lesion in the left side of the pelvis is likely left ovarian cyst with probable old intr acystic hemorrhage. Procedure Note [facility], Radiant Results Inft User - 2019 1:[address] Abdomen and Pelvis with intravenous contrast. CLINICAL HISTORY: Abdominal infection in cluding peritonitis DOSE: Up-to-date CT equipment and radiat ion dose reduction techniques were employed. CTDIvol: 9.07 mGy. DLP: 477 mGy-cm. TECHNIQUE : Contiguous axial imaging fro m the level of the lung bases through the pubic symphysis were perform ed after the uncomplicated administration of Omnipaque contrast mat erial. Coronal and sagittal reconstructions were obtained. Auto mA a nd/or iterative reconstruction were used to reduce radiation dose. FINDINGS: Lower lungs: Minimal congestion in the r ight lower lung. Sliding hiatal hernia. Coronary atherosclerosis. Liver, Gallbladder and Spleen: Liver is 19.2 cm in length with prominent Esequiel's lobe. In the gallbladder bed re gion of the liver parenchyma, 5 mm size cystic lesion is seen. Another poss ible subcentimeter cystic lesion in the left lobe near the falciform sulcus. Mild diffuse hepatic steatosis is suspected. Spleen is approximately 9.2 x 3 cm. No c alcified gallstones detected. Peritoneum: No free air or free fluid. No lymphadenopathy. Pancreas and Adrenals: Unremarkable paris creas and adrenal glands. Kidneys and Ureters: No visible calculi in the renal collecting systems. No hydroureter or hydronephrosis. No enh ancing kidney lesions detected. Vessels: Atherosclerosis of aorta and il iac arteries. Note made of 2 right renal arteries and one left renal artery arising from the abdominal aorta. Retroperitoneum: No abnormal fluid or ly mphadenopathy. Bowel: No acute findings. Minimal divert icular disease of the sigmoid colon noted without any acute changes. Almost the entire large bowel is collapsed with small amount of retained liquid fec al material seen in the sigmoid colon. Bladder and Reproductive Organs: S/P hys terectomy. 21 mm lesion in the left side of the pelvis could be cystic lesio n in the left ovary with old intracystic hemorrhage. No gross pathology in incompletely diste nded urinary bladder. Bones: Exaggerated lumbar lordosis. No c ompression deformity in the lower thoracic or lumbar vertebral bodies. No signs of AVN in the femoral heads. Bone island noted in the neck of the lef t femur. Soft tissues: Small indirect type bilate ral inguinal hernia. CONCLUSION: 1. No acute intra-abdominal or pelvic ab normalities detected. Large bowel is collapsed with a small amount of yesi ined liquid fecal material. Findings are nonspecific. Please correla te with clinical history for nonspecific colitis/gastroenteritis. 2. Moderate-sized hiatal hernia. 3. S/P hysterectomy. Small lesion in the left side of the pelvis is likely left ovarian cyst with probable old intr acystic hemorrhage. Performing Organization Address City/State/Zipcode Phone Number PACS/VR/DOSE CBC WITH DIFFERENTIAL (02/13/2020 11:40 AM CDT) Pathologist Sig nature WBC 8.56 4.30 - 11.10 [facility] 10*3/L [facility] RBC 5.09 3.93 - 5.25 [facility] 10*6/L [facility] HGB 16.0 (H) 11.6 - 15.0 [facility] g/dL [facility] HCT 47.6 (H) 35.7 - 45.2 % [facility] MCV 93.5 80.6 - 95.5 fL [facility] MCH 31.4 25.9 - 32.8 pg [facility] MCHC 33.6 31.6 - 35.1 [facility] g/dL [facility] RDW-SD 43.1 39.0 - 49.9 fL [facility] RDW-CV 12.5 12.0 - 15.5 % [facility] PLT 300 166 - 358 [facility] 10*3/L [facility] MPV 10.5 9.5 - 12.9 fL [facility] NRBC/100 WBC 0.0 0.0 - 10.0 /100 [facility] WBCs [facility] NRBC x10^3 <0.01 10*3/L [facility] GRAN MAT (NEUT) % 72.4 % [facility] IMM GRAN % 0.40 % [facility] LYMPH % 20.7 % [facility] MONO % 5.6 % [facility] EOS % 0.7 % [facility] BASO % 0.2 % [facility] GRAN MAT x10^3(ANC) 6.20 1.88 - 7.09 [facility] 10*3/uL [facility] IMM GRAN x10^3 0.03 0.00 - 0.06 [facility] 10*3/uL [facility] LYMPH x10^3 1.77 1.32 - 3.29 [facility] 10*3/uL [facility] MONO x10^3 0.48 0.33 - 0.92 [facility] 10*3/uL [facility] EOS x10^3 0.06 0.03 - 0.39 [facility] 10*3/uL [facility] BASO x10^3 <0.03 0.01 - 0.07 [facility] 10*3/uL [facility] Specimen Blood - VENOUS Performing Organization Address City/[facility]/Zipcode Phone Number [facility] CLIA: [id number], [address] [place] [address] Lactic Acid Whole Blood (02/13/2020 11:40 AM CDT) Pathologist Sig nature LACTIC ACID 1.52 mmol/L [facility] Specimen Blood - VENOUS Performing Organization Address City/[facility]/Zipcode Phone Number [facility] CLIA: [id number], [address] [place] [address] Prothrombin Time (PT) / INR (02/13/2020 11:40 AM CDT) PROTIME PATIENT 12.3 12.0 - 14.7 [facility] LABORATORY INR 1.0Comment: Normal [facility] INR <1.1; [facility] Therapeutic range LABORATORY 2.0 to 3.0 or 2.5 to 3.5, depending upon the indications. Specimen Blood - VENOUS Performing Organization Address [facility] Phone Number [facility] CLIA: [id number], [address] [place] [address] aPTT (02/13/2020 11:40 AM CDT) Pathologist Sig nature APTT Patient 25 23 - 38 Seconds [facility] Specimen Blood - VENOUS Narrative Performed At The [facility] patient population mean normal value [facility] for aPTT is 30 seconds. Performing Organization Address [facility] Center[facility]j Phone Number [facility] CLIA: [id number], [address] [place] [address] Amylase Serum (02/13/2020 11:40 AM CDT) Pathologist Sig nature CHRISTY 53 35 - 110 U/L [facility] Specimen Blood - VENOUS Performing Organization Address [facility] Phone Number [facility] CLIA: [id number], [address] [place] [address] Lipase Serum (02/13/2020 11:40 AM CDT) Pathologist Sig nature LIPASE 124 0 - 220 U/L [facility] Specimen Blood - VENOUS Performing Organization Address [facility] Phone Number [facility] CLIA: [id number], [address] [place] [address] Hepatic Function Panel (ALB, T.PRO, BILI T, BU/BC, ALT, AST, ALK PHOS) (02/13/2020 11:40 AM CDT) Pathologist Sig nature TOTAL BILI 0.6 0.1 - 1.1 mg/dL [facility] BILI UNCON 0.6 0.1 - 1.1 mg/dL [facility] BILI CONJ 0.0 0.0 - 0.3 mg/dL [facility] T PROTEIN 7.9 6.3 - 8.2 g/dL [facility] ALBUMIN 4.3 3.5 - 5.0 g/dL [facility] ALK PHOS 86 34 - 122 U/L [facility] ALTv 14 5 - 35 U/L [facility] AST(SGOT) 31 13 - 40 U/L [facility] Specimen Blood - VENOUS Performing Organization Address City/State/Zipcode Phone Number [facility] CLIA: [id number], [address] [place] [address] Basic Metabolic Panel (NA, K, CL, CO2, GLUCOSE, BUN, CREATININE, CA) (02/13/2020 11:40 AM CDT) [facility] NA 137 135 - 145 [facility] mmol/L [facility] K 3.7 3.5 - 5.0 [facility] mmol/L [facility] CL 104 98 - 108 mmol/L [facility] CO2 TOTAL 24 23 - 31 mmol/L [facility] AGAP 9 2 - 16 [facility] BUN 7 7 - 23 mg/dL [facility] GLUCOSE 121 (H) 70 - 110 mg/dL [facility] CREATININE 0.50 0.50 - 1.04 [facility] mg/dL [facility] CALCIUM 9.5 8.6 - 10.6 [facility] mg/dL [facility] eGFR Calculation 127.2 mL/min/1.73m2 [facility] (Non-[facility] [place]) eGFR Calculation 154.1 mL/min/1.73m2 [facility] () [facility] Specimen Blood - VENOUS Narrative Performed At Association of Glomerular Filtration Rate (GFR) [facility] and Staging of Kidney Disease* + + +- + | GFR (mL/min/1.73 m2) | With Kidney Damage | Without Kidney Damage + + +- + | >90 | Stage one | Normal + + +- + | 60-89 | Stage two | Decreased GFR + + +- + | 30-59 | Stage three | Stage three + + +- + | 15-29 | Stage four | Stage four + + +- + | <15 (or dialysis) | Stage five | Stage five + + +- + *Each stage assumes the associated GFR level has been in effect for at least three months. Stages 1 to 5, with or without kidney disease, indicate chronic kidney disease. Notes: Determination of stages one and two (with eGFR >59mL/min/1.73 m2) requires estimation of kidney damage for at least three months as defined by structural or functional abnormalities of the kidney, manifested by either: Pathological abnormalities or Markers of kidney damage (including abnormalities in the composition of the blood or urine or abnormalities in imaging tests). Performing Organization Address City/State/Zipcode Phone Number [facility] CLIA: [id number], [address] [place], [place] [address] documented in this encounter Visit Diagnoses Diagnosis Abdominal pain, unspecified abdominal lo cation - Primary Hiatal hernia Diaphragmatic hernia without mention of obstruction or gangrene Cyst of left ovary Other and unspecified ovarian cyst documented in this encounter Administered Medications Medication Order MAR Action Action Date Dose Rate Site FENTanyl PF (SUBLIMAZE (PF)) Given 02/13/2020 12:28 PM CDT 100 m cg injection 100 mcg 100 mcg, Slow IV Push, ONCE, 1 dose, 02/13/20 at 1245, Routine FENTanyl PF (SUBLIMAZE (PF)) injection 50 Given 02/13/2020 2:18 PM CDT 50 mcg mcg 50 mcg, Slow IV Push, ONCE, 1 dose, 02/13/20 at 1530, STAT iohexol (OMNIPAQUE 350 BULK-150 mL) Given 02/13/2020 3:15 PM CD T 120 mL injection 120 mL 120 mL, Intravenous, ONCE, 1 dose, Tue02/13/20 at 1330, Routine NaCl 0.9% (NS) bolus infusion New Bag 02/13/2020 12:25 PM CDT 1,000 mL 999 mL/hr 1,000 mL at 999 mL/hr, 1,000 mL, IV Infusion, ONCE, 1 dose, 02/13/20 at 1245, STAT ondansetron (ZOFRAN (PF)) injection 4 mg Given 02/13/2020 12:26 PM CDT 4 mg 4 mg, Slow IV Push, ONCE, 1 dose, Tue02/13/20 at 1245, JERRICA documented in this encounter"
--- OUTSIDE RECORDS SUMMARY | 2020-05-08 22:35 | XMS REPORT | Continuity of Care Document ---
:1960 Author Organization [facility] t Address [address] [place] [address] Care Team Providers Name Role Phone Doctor Unassigned, Name Attending Clinician Unavailable Darien BURGOS Attending Clinician Problems This patient has no known problems. Allergies, Adverse Reactions, Alerts Allergy Allergy Status Severity Reaction(s) Onset Inactive Treating Comm ents Source Name Type Date Date Clinician Losartan Adverse Active Info Not [facility] Available [facility] lisinopr Adverse Active Info Not [facility] Reaction Available [facility] Medications Ordered Filled Start Stop Current Ordering Indication Dosage Frequency Signature Comments Components Source Medication Medication Date Date Medication? Clinician (SIG) Name Name Aspirin 81 Aspirin [address] [facility] [place] [facility] Clonazepam Clonazepam Yes Laney [address] [facility] [place] at bedtime [facility] Amlodipine Amlodipine Yes Laney [address] [facility] Besylate Besylate [place] Yarelis es - [facility] Nexium Nexium Yes Lane[facility] 1 capsule [facility] [place] Metoprolol Metoprolol Yes Laney [address] [facility] Tartrate Tartrate [place] with food [facility] Sucralfate Sucralfate Yes Laney [address] [facility] [place] on an [facility] - empty [facility]oria stomach l [facility] Procedures This patient has no known procedures. Encounters Start End Encounter Admission Attending Care Care Encounter Source Date/Time Date/Time Type Type Clinicians Facility Department ID 2020-04-22 2020-04-22 Outpatient [facility] [id number] [facility]00 Samantha Guido [facility] 2020-03-03 2020-03-03 Orders Doctor ELY [id number] 00:00:00 00:00:00 Only Unassigned, MELISA [id number] [facility] [id number] 2020-03-03 2020-03-03 Telephone [facility] [id number] 00:00:00 00:00:00 Jimbo [place] [id number] [place] [id number] Professio [phone] nal 059 [facility] 2019-10-31 2020-02-29 [facility] [id number] 09:01:49 09:56:55 ne Visit Jimbo [place] [id number] [place] [id number] Professio [phone] nal 9 [facility] 2020-02-08 2020-02-08 [facility] [id number] [address] 10:45:00 10:45:00 t Specialty/U Gayle kes - Specialty rology [facility] a [facility]Urology Clinic l [facility] Results This patient has no known results.
--- OUTSIDE RECORDS SUMMARY | 2020-05-08 22:36 | XMS REPORT ---
:1960 Author Organization [facility] Address [address] [place] [place] [address] Care Team Providers Name Role Phone Laney Erickson Unavailable [phone] PROBLEMS No Information ALLERGIES No Information ENCOUNTERS from 1960 to 2020-04-22 Encounter Location Date Provider Diagnosis [facility] [address], Laney Erickson Specialty[facility] [address] IMMUNIZATIONS No Information SOCIAL HISTORY Sex Assigned At : Social History Observation Description Sex Assigned At Unknown REASON FOR REFERRAL No Information VITAL SIGNS No information MEDICATIONS Medication SIG (Take, Route, Frequency, Start Date End Date Status Duration) Bactrim DS 800-160 MG 1 tablet Orally once a day for Apr, 2 3 Apr, 2020 Active 1 days PROCEDURES No Information RESULTS No Results REASON FOR VISIT No Information MEDICAL (GENERAL) HISTORY Type Description Date Medical History heart disease Medical History hypertension Medical History depression Medical History hypercholesterolemia Surgical History bladder sling 2009 Surgical History tubal ligation 1987 Hospitalization History Urine re Goals Section No Information Health Concerns No Information MEDICAL EQUIPMENT No Information MENTAL STATUS No Information FUNCTIONAL STATUS No Information ASSESSMENTS No Information PLAN OF TREATMENT Medication Medication Name Sig Start Date Stop Date Bactrim DS 800-160 MG 1 tablet Orally once a day for 1 days 22 S 2019Apr,
--- OUTSIDE RECORDS SUMMARY | 2020-05-08 22:36 | XMS REPORT | Summary of Care ---
:1960 Author Organization [facility] Address [address] [place] [id number] Care Team Providers Name Role Phone Juve Montez Primary Care Provider Reason for Visit Reason Comments Rx Concern/Question Encounter Details Date Type Department Care Team Description 03/03/2020 Telephone [facility] Cardiology- Karen Ledezma MD Rx Concern/Question 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 Obesity (BMI 30-39.9) 03/12/2017 NSTEMI (non-ST elevated myocardial infarction) 016 Family history of ischemic heart disease 09/23/2015 HTN (hypertension) 09/23/2015 Chest pain 09/22/2015 documented as of this encounter (statuses as of 03/05/2020) Social History Tobacco Use Types Packs/Day Years Used Date Current Every Day Smoker Smokeless Tobacco: Never Used Comments: slowly stopping over time Alcohol Use Drinks/Week oz/Week Comments No Sex Assigned at Date Recorded Not on file COVID-19 Exposure Response Date Recorded In the last month, have you been in contact with No / Unsure 02/13/2020 11:05 AM CDT someone who was confirmed or suspected to have Coronavirus / COVID-19? documented as of this encounter Last Filed Vital Signs Not on filedocumented in this encounter Miscellaneous Notes Telephone Encounter - Tahir Min MA - 03/04/2020 11:58 AM CDTPer patient GI was questioning why she was not on Plavix? I reminded her according to our notes due to cost. She then agreed yes due to cost. She states still has no insurance. Advised her to call pharmacy to [facility]. Or [employer] card discount. Then call back. Verbally understood. GI clearance faxed back. Attached ov notes. Confirmation received. elephone Encounter - Milvia Toribio - 03/03/2020 11:27 AM CDTPatient would like to know if she should start taking her blood thinners again. Please advise. documented in this encounter Plan of Treatment Health Maintenance Due Date Last Done Comments HEPATITIS C (HCV) SCREEN 1960 Depression Screening 1974 DTaP,Tdap,and Td Vaccines (1 - 1981 Tdap) PAP SMEAR 1983 Breast Cancer Screening (MAMMOGRAM) 2002 COLON CANCER SCREENING ANNUAL 2012 FIT/FOBT COLON CANCER SCREENING FIT DNA 2012 EVERY 3 YEARS COLON CANCER SCREENING 2012 SIGMOIDOSCOPY EVERY 5 YEARS COLONOSCOPY 2012 Colorectal Cancer Screening 2012 Zoster Recombinant Vaccine 2012 (SHINGRIX) (1 of 2) LUNG CANCER SCREEN: Recommended for 2017 age 55-80 with 30 + pack year history INFLUENZA VACCINE (#1) 2020 PNEUMOCOCCAL 0-64 YEARS COMBINED Aged Out No longer eligible based on SERIES patient's age to complete this topic documented as of this encounter Implants Implanted Type Area Improvement Specialist Device Identifier Shelf Exp iration Model / Serial Date / Lot Stent STENT Heart documented as of this encounter Results Not on filedocumented in this encounter
--- OUTSIDE RECORDS SUMMARY | 2020-05-08 22:36 | XMS REPORT | Summary of Care ---
:1960 Author Organization [facility] - Health Address [address] [place] [address] Care Team Providers Name Role Phone Juve Montez Primary Care Provider Encounter Details Date Type Department Care Team Description 03/03/2020 Orders Only [facility] Doctor Unassigned, No [address] [facility] [place] [address] [address] [place] [address] Allergies Active Allergy Reactions Severity Noted Date Comments Levofloxacin Swelling 01/08/2020 Lisinopril Cough 11/30/2017 documented as of this encounter (statuses as of 03/04/2020) Medications Medication Sig Dispensed Refills Start Date [...] as of this encounter (statuses as of 03/04/2020) Active Problems Problem Noted Date Dyslipidemia 03/13/2017 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 Obesity (BMI 30-39.9) 03/12/2017 NSTEMI (non-ST elevated myocardial infarction) 016 Family history of ischemic heart disease 09/23/2015 HTN (hypertension) 09/23/2015 Chest pain 09/22/2015 documented as of this encounter (statuses as of 03/04/2020) Social History Tobacco Use Types Packs/Day Years [...] Signs Not on filedocumented in this encounter Plan of Treatment Health Maintenance Due Date Last Done Comments HEPATITIS C (HCV) SCREEN 1960 Depression Screening 1974 DTaP,Tdap,and Td Vaccines ( - 1981 Tdap) PAP SMEAR 1983 Breast [...] of this encounter Implants Implanted Type Area Parking Lot Attendant Device Identifier Shelf Exp iration Model / Serial Date / Lot Stent STENT Heart documented as of this encounter Procedures Procedure Name Priority Date/Time Associated Diagnosis Comme nts MEDICAL Routine 03/03/2020 12:01 AM CDT RELEASE/CLEARANCE FORMS documented in this encounter Results Not on filedocumented in this encounter
[2020-05-09] MEDS ORDERED: ASPIRIN EC 81 MG TAB PO SCH (09:00)
== END 2020-05-08 15:40 | disposition home or self-care (01) | DRG 313 ==
LOC: ER 19:53 → ERHOLD 21:15 → OBSVTOIN 21:15 → 4TH 05-08 01:01
PROVIDERS: ADMIT Internal Medicine; ATTEND Internal Medicine
DX: R07.89 Other chest pain (principal); I10 Essential (primary) hypertension; I25.10 Atherosclerotic heart disease of native coronary artery without angina pectoris; I25.2 Old myocardial infarction; Z90.710 Acquired absence of both cervix and uterus; Z95.5 Presence of coronary angioplasty implant and graft; Z79.899 Other long term (current) drug therapy; Z79.82 Long term (current) use of aspirin; Z20.828 Contact with and (suspected) exposure to other viral communicable diseases
CPT/HCPCS: 36415; 71045; 78452; 80048; 80076; 81003; 83735; 83880; 84132; 84484; 85025; 85610; 85730; 93005; 93017; 93306; 99285; A9500; J1644; J2785; U0003